=== PATIENT | female | born 1940 | race Caucasian/White ===

== ENCOUNTER 2016-12-10 12:57 | Inpatient (IN) | payer BC, MEDICARE ==
[2016-12-10 14:36] LABS: Add Diff/Slide Review? Slide Review Added; Comments Flag Yes; Hematocrit 32 % (35-47); Mean Corpuscular HGB Conc 32 g/dl (31-36); Mean Corpuscular Hemoglobin 27 pg (27-31); Mean Corpuscular Volume 85 fL (80-97); Mean Platelet Volume 9 um3 (7.4-10.4); Red Blood Count 3.73 10^6/ul (4.0-5.4); Red Cell Distribution Width 16 % (10.5-15); White Blood Count 26.1 10^3/ul (3.5-10.8)
[2016-12-10 14:44] LABS: Albumin 3.1 g/dL (3.2-5.2); BUN/Creatinine Ratio 22.7 (8-20); Calcium 9.1 mg/dL (8.6-10.3); EGFR African American 179.3 (>60); EGFR Non-African American 139.4 (>60); Globulin 3.6 g/dL (2-4); Potassium 3.6 mmol/L (3.5-5.0); Total Bilirubin 0.6 mg/dL (0.2-1.0); Total Protein 6.7 g/dL (6.4-8.9)
[2016-12-10 14:47] LABS: Troponin I 0.26 ng/mL (<0.04)
[2016-12-10] MEDS ORDERED: Ondansetron INJ* 2 MG/ML VIAL IV ONE (14:50)
[2016-12-10] MEDS ORDERED: Morphine INJ* 10 MG/ML 1 ML CARPUJECT IV ONE (14:50)
[2016-12-10] MEDS ORDERED: NS 0.9% 1000 ML* 1,000 ML IV ONE ×2 (14:50)
[2016-12-10] MEDS ORDERED: Piperac/Tazob 3.375 gm in NS* 3.375 GM/100 ML BAG IVPB ONE ×2 (14:51→17:00)
[2016-12-10] MEDS ORDERED: Aspirin TAB* 325 MG PO ONE (15:05)
[2016-12-10] MEDS ORDERED: Metoclopramide IV* 5 MG/ML 2 ML VIAL IV ONE (15:28)
[2016-12-10] MEDS ORDERED: Iohexol 350* (CONTRAST) 500 ML MDV IV ONE (16:30)
[2016-12-10] MEDS ORDERED: NS 0.9% 1000 ML* 1,000 ML IV SCH (16:45)
--- NOTE | 2016-12-10 17:08 | RAD ---
Indication: Right lower lobe pneumonia. Single frontal view of the chest performed at 1613 hours was reviewed. No prior study is available for comparison.. No mediastinal shift is noted. Heart is of normal size and configuration. Some atelectasis is noted in the right midlung field. Left lung field is clear.. IMPRESSION: LINEAR ATELECTASIS RIGHT MIDLUNG ZONE.
--- NOTE | 2016-12-10 17:26 | RAD ---
Indication: Elevated troponin, shortness of breath. Abdominal pain and right lower quadrant pain CTA of the chest, CT of the abdomen and pelvis was performed after oral and IV contrast administration. A total of Administered 99.9 ml of OMNIPAQUE 350 mgi/ml was administered according to hospital protocol. The pulmonary arterial tree is well opacified. No filling defects are noted to suggest pulmonary embolus. Aorta demonstrates no evidence of aortic dissection although atherosclerotic aorta is noted. No aneurysmal dilatation is noted. The trachea and major bronchi appear patent. There is some atelectasis in the anterior right upper lobe. No pleural fluid is noted. Atelectasis is noted in the left lower lobe as well. No alveolar consolidation is noted. There is no mediastinal or hilar adenopathy. The trachea and major bronchi appear patent. The heart demonstrates no evidence of pericardial effusion. The liver is normal in size. There are multiple lesions in the liver which are low density and are consistent with metastatic disease. The largest in the dome of the right lobe of liver measures up to 7.8 cm although innumerable other lesions are noted scattered throughout both lobes of the liver. The spleen demonstrates areas of hypoperfusion consistent with splenic infarcts. There is a large mass presumably from the pancreatic body measuring approximately 9.6 x 5.7 cm causing mass effect on the lesser curvature of the stomach. There may be extension into the stomach. There is likely encasement of the splenic artery causing hypoperfusion of the spleen. No adrenal masses are noted. The kidneys demonstrate symmetric nephrograms without focal lesions. No hydronephrosis is noted. Atherosclerotic aorta is noted. No dilated loops of bowel are noted. The colon is filled with stool. Atherosclerotic aorta without aneurysmal dilatation. No retroperitoneal adenopathy is noted. No pelvic masses are noted. Myomatous changes of the uterus are noted. The urinary bladder is unremarkable. The bony structures demonstrates degenerative disc disease at L2-L3. Endplate sclerosis is noted. Milder degenerative disc disease is noted at other levels. IMPRESSION: NO EVIDENCE OF PULMONARY EMBOLUS IS NOTED. LEFT BASILAR ATELECTASIS IS NOTED. RIGHT MIDLUNG ATELECTASIS IS NOTED. NO MEDIASTINAL ADENOPATHY IS NOTED. MULTIPLE HEPATIC MASSES CONSISTENT WITH METASTATIC DISEASE IS NOTED THE LARGEST IN THE DOME OF THE RIGHT LOBE OF LIVER MEASURING 7.8 CM ALTHOUGH INNUMERABLE BILOBAR METASTASES ARE PRESENT. THERE IS A LARGE MASS ARISING FROM THE PANCREATIC BODY MEASURING UP TO 9.6 X 5.7 CM WHICH IS HETEROGENEOUS. THERE IS LIKELY OBSTRUCTION AND INVASION OF THE SPLENIC ARTERY RESULTING IN HYPOPERFUSION OF THE SPLEEN. SPLENIC INFARCT IS LIKELY.
[2016-12-10] MEDS: Pantoprazole IV* 40 MG IV SCH (19:31)
[2016-12-10] MEDS: Enoxaparin(*) 40 MG/0.4 ML SYR SUBCUT SCH (19:31)
[2016-12-10] MEDS: KCL 10 MEQ/50 ML IVPREMIX* 10 MEQ/50 ML BAG IV SCH ×3 (19:49→23:51)
[2016-12-10] MEDS ORDERED: Piperac/Tazob 3.375 gm in NS* 3.375 GM/100 ML BAG IVPB SCH ×2 (20:00→21:40)
--- NOTE | 2016-12-10 20:30 | HP ---
HISTORY AND PHYSICAL: DATE OF ADMISSION: 12/10/16 TIME OF EVALUATION: 3:20 p.m. PRIMARY CARE PROVIDER: Jessenia Terrell MD, at [facility], phone number is [phone]. CHIEF COMPLAINT: Nausea and vomiting. HISTORY OF PRESENT ILLNESS: Mrs. Wise is a 76-year-old lady with a past medical history of hyperlipidemia, depression, hypertension, tobacco abuse who presented to the emergency room with complaints of nausea and vomiting. She states she was in her usual state of health until around Carmen time when she started to experience weakness, fatigue, night sweats to the point she would drench her sheets and she had 20-pound weight loss since then. She states that she was usually very active cleaning her home, working on her garden and since she has not been able to do it. She saw her PCP who referred her to [facility] where she was admitted from 11/22/16 to 11/24/16. Records are not available at this time but on her discharge instructions, it was stated that the patient was diagnosed with pancreatic cancer. Her granddaughter stated that the patient had a CT of the abdomen and pelvis that showed a pancreatic mass and possible liver metastasis. They say a biopsy was performed and they were told she had pancreatic cancer, but they do not have any records available at this time. The patient was discharged home and initially she feels she was doing well. She was able to eat in small and frequent meals, but she had no vomiting, she was too fatigued, but she was able to function at home and she has an appointment to see Dr. Krissy Yo, oncologist in [place]. The patient states that yesterday she felt worse than usual and she started to have recurrent vomiting with nausea and she was unable "to keep anything down," reason why she came to the emergency room today. She denies chest pain, dyspnea with exertion, orthopnea, paroxysmal nocturnal dyspnea, fever, chills, cough, diarrhea, or urinary complaints. PAST MEDICAL HISTORY: 1. Possible metastatic pancreatic CA as described above. 2. Hyperlipidemia. 3. Depression. 4. Hypertension. MEDICATIONS LIST: 1. Amlodipine/valsartan 5/160 mg one tablet p.o. daily. 2. Atorvastatin 40 mg p.o. daily. 3. Hydrocodone/acetaminophen 7.5/325 mg one tablet p.o. q.6 hours p.r.n. pain. 4. Multivitamins 1 tablet p.o. daily. 5. Omeprazole 20 mg p.o. daily. 6. Ondansetron 4 mg p.o. q.12 hours p.r.n. nausea. 7. Sertraline 200 mg p.o. daily. ALLERGIES: No known drug allergies. FAMILY HISTORY: Her mother of breast cancer. Father of heart disease. One son had a history of bipolar disorder and committed suicide. SOCIAL HISTORY: The patient is a smoker since age 18, one pack per day. Alcohol, she states that she drinks wine daily up to 4 to 5 glasses a day, but she states that since she has been unable to drink. She lives in [place] and healthcare proxy is her son, Jony Page, phone number [phone]. REVIEW OF SYSTEMS: A 14-point review of systems was performed and all the pertinent negative and positive findings are in the HPI. PHYSICAL EXAMINATION GENERAL: The patient is a pleasant elderly lady, lying in ER stretcher, in no acute distress. VITAL SIGNS: Temperature 97.7; heart rate is 90; respiratory rate is 12; oxygen saturation is 88% on room air, but it is up to 94% on 2 L nasal cannula; blood pressure is 153/63. HEENT: Pupils are equal and reactive to light. Moist mucous membranes. CHEST: Breath sounds present bilaterally with no added sounds. CVS: Normal S1, S2. Regular rate and rhythm. ABDOMEN: Soft with diffuse mild tenderness especially in the epigastric area. No guarding. No rebound. Bowel sounds are present. EXTREMITIES: No edema. No calf tenderness. NEURO: She is alert, awake, and oriented x3. Able to move all 4 extremities. LABORATORY AND IMAGING DATA: The patient had a CBC that showed WBC of 26.1, hemoglobin of 10, hematocrit of 32, platelets of 235 with 85% neutrophils. Chemistry showed a sodium of 136, potassium of 3.6, chloride of 99, bicarb of 25 , anion gap of 12, BUN of 10, creatinine of 0.4, glucose of 133. Lactic acid of 1, calcium of 9.1, total bilirubin of 0.6. AST of 37, ALT of 23, alk phos of 241. Troponin is 0.26. Albumin 3.1, lipase is 10. EKG done on 12/10/16 at 1:04 p.m. shows sinus rhythm at 97 beats per minute with minimal ST depression in V1 and V3, T-wave inversion in V2. There is no prior EKG to compare. ASSESSMENT AND PLAN: Mrs. Wise is a 76-year-old lady with a past medical history of hyperlipidemia, depression, hypertension that since Carmen has had progressive decline in her condition with weakness, fatigue, night sweats, 20-pound weight loss and that has been recently diagnosed with possible metastatic pancreatic cancer who presents to our emergency room with severe fatigue and recurrent nausea and vomiting. 1. Systemic inflammatory response syndrome. The patient meets systemic inflammatory response syndrome criteria with tachycardia and leukocytosis. It is not clear if she has an infectious insult at this time or if this just represents an inflammatory response to her malignancy. The patient will receive IV hydration. She is going to be cohn cultured and she is going to be starting empirically on Zosyn in case she has a GI source of infection. 2. Pancreatic cancer. We are awaiting records from [place]. She is going to have a CT of the abdomen and pelvis here to further delineate her disease and after I receive the records, I am going to request an Oncology consultation. 3. Elevation of troponin with EKG changes. The patient is a smoker, has hyperlipidemia and she is certainly at risk for coronary artery disease, but she is very clear that she does not have chest pain , shortness of breath, palpitations, or any other symptoms. These EKG changes revealed elevated troponins could represent acute coronary syndrome, could be a sign of increased demand in the setting of metastatic cancer and another possibility of the pulmonary embolism since she has a borderline low oxygen saturation and has a malignancy. At this point, she is going to be admitted to telemetry floor. We are going to check serial troponins. She will be started on aspirin. We are going to check an echocardiogram and a CTA of the chest to rule out pulmonary embolism. 4. Hypoxemic respiratory failure. The patient has a longstanding history of tobacco abuse, so this borderline low oxygen may be a chronic finding for her as she is not complaining of shortness of breath despite the lower number. She will have a CT of the chest and we will be able to analyze the parenchyma better. 5. Anemia. I suspect this is likely anemia of chronic disease in the setting of malignancy. We will check anemia workup. 6. Code status was discussed with the patient. She initially stated she wanted to be a do not resuscitate but at her family urging, she states that she is going to talk to her family and think more about it, but at this point she is a full code. 7. DVT prophylaxis. The patient has a score of 5 on the DVT Prophylaxis Risk Assessment Guide and she will be started on subcutaneous heparin. TIME SPENT: Approximately 80 minutes were spent with the patient and family interview, medical records review, physical examination to complete this admission and more than half of this time was spent [id number] with the patient in coordination of care. CC: Jessenia Terrell MD, [facility], phone number [phone] * [id number]/[facility] #: [id number] MTDD
--- NOTE | 2016-12-10 20:46 | ED ---
Pb Yo Billy, scribed for Aurelio Gallardo MD on 12/10/16 at 1442 . Complex/Multi-Sys Presentation - HPI Summary HPI Summary: Patient is a 76 year-old female coming to [facility] presenting with a complaint of intermittent right lower ribcage pain and associated nausea and vomiting. She states that she believes that she had lost 20 pounds in 2 weeks, prompting her to see her PCP. She was then sent to the [place] ER, where masses in the liver and pancreas were visualized on CT. She had a biopsy done, and she is concerned about having "hit a nerve" during the procedure, as the region is still painful 2 weeks after the biopsy. She states that the liver biopsy was positive for cancer. She has a follow up appointment with Dr. Yo (oncology) in 4 days. At this time in the ED, the patient denies any fever, diarrhea. She reports regular , normal, daily BM's. She does, however, report night sweats. - History Of Current Complaint Chief Complaint: EDAbdPain Time Seen by Provider: 12/10/16 14:18 Hx Obtained From: Patient Onset/Duration: Gradual Onset, Lasting Weeks, Still Present Timing: Intermittent, Lasting: Severity Currently: Moderate Severity Initially: Moderate Location: Pain At: - right lower ribcage Aggravating Factor(s): nothing Alleviating Factor(s): nothing Associated Signs And Symptoms: Positive: Nausea, Vomiting, Diaphoresis - night sweats. Negative: Diarrhea, Fever - Allergies/Home Medications Allergies/Adverse Reactions: Allergies Allergy/AdvReac Type Severity Reaction Status Date / Time No Known Drug Allergy Allergy no reaction Verified 12/10/16 15:29 Home Medications: Home Medications Amlodipine Besylate-Valsartan [Amlodipine Besylate/Valsa 5-160 mg-] 1 tab PO DAILY 12/10/16 [History Confirmed 12/10/16] Atorvastatin* [Lipitor*] 40 mg PO DAILY 12/10/16 [History Confirmed 12/10/16] Hydrocodone-Acetaminophen [Lorcet Plus 7.5-325 mg] 1 tab PO Q6H PRN 12/10/16 [ History Confirmed 12/10/16] Multivitamins/Minerals TAB* [Thera M Plus TAB*] 1 tab PO DAILY 12/10/16 [ History Confirmed 12/10/16] Omeprazole CAP* [Prilosec CAP* 20 MG] 20 mg PO DAILY 12/10/16 [History Confirmed 12/10/16] Ondansetron ODT TAB* [Zofran Odt TAB*] 4 mg PO Q12H PRN 12/10/16 [History Confirmed 12/10/16] Sertraline* [Zoloft*] 200 mg PO DAILY 12/10/16 [History Confirmed 12/10/16] PMH/Surg Hx/FS Hx/Imm Hx Endocrine/Hematology History: Denies: Hx Diabetes Cardiovascular History: Denies: Hx Hypertension Infectious Disease History: No Infectious Disease History: Denies: Traveled Outside the [place] in Last 30 Days - Family History Known Family History: Positive: Cardiac Disease - father, Other - breast cancer (mother) - Social History Alcohol Use: Daily Substance Use Type: Reports: None Smoking Status (MU): Current Every Day Smoker Review of Systems Positive: Skin Diaphoresis. Negative: Fever Positive: Vomiting, Nausea, Other - right lower ribcage pain. Negative: Diarrhea All Other Systems Reviewed And Are Negative: Yes Physical Exam Triage Information Reviewed: Yes Vital Signs On Initial Exam: Initial Vitals Temp Pulse Resp BP Pulse Ox 97.7 F 90 12 153/63 88 12/10/16 13:29 12/10/16 13:29 12/10/16 13:29 12/10/16 13:29 12/10/16 13:29 Vital Signs Reviewed: Yes Appearance: Positive: Well-Appearing, No Pain Distress Skin: Positive: Warm, Skin Color Reflects Adequate Perfusion, Dry Eyes: Positive: QUINCY ENT: Positive: Other - Dry mucous membranes. Neck: Positive: Supple, Nontender, No Lymphadenopathy Respiratory/Lung Sounds: Positive: Rales - Right lower lobe., Rhonchi - Right lower lobe. Cardiovascular: Positive: RRR - 99 bpm., Other - No gallops., S1, S2. Negative : Murmur, Rub Abdomen Description: Positive: Soft, Other: - RLQ tenderness.. Negative: CVA Tenderness (R), CVA Tenderness (L), Distended Bowel Sounds: Positive: Present Musculoskeletal: Positive: Strength/ROM Intact, Other - Calves are soft and nontender.. Negative: Edema Left, Edema Right Neurological: Positive: Sensory/Motor Intact, Alert, Oriented to Person Place, Time Psychiatric: Positive: Affect/Mood Appropriate - Logical and coherent. AVPU Assessment: Alert Diagnostics - Vital Signs Vital Signs Temp Pulse Resp BP Pulse Ox 12/10/16 13:29 97.7 F 90 12 153/63 88 - Laboratory Lab Results: Lab Results 12/10/16 Range/Units 13:48 WBC 26.1 H (3.5-10.8) 10^3/ul RBC 3.73 L (4.0-5.4) 10^6/ul Hgb 10.0 L (12.0-16.0) g/dl Hct 32 L (35-47) % MCV 85 (80-97) fL MCH 27 (27-31) pg MCHC 32 (31-36) g/dl RDW 16 H (10.5-15) % Plt Count 235 (150-450) 10^3/ul MPV 9 (7.4-10.4) um3 Neut % (Auto) 85.3 H (38-83) % Lymph % (Auto) 4.6 L (25-47) % Menard % (Auto) 8.9 (1-9) % Eos % (Auto) 1.0 (0-6) % Baso % (Auto) 0.2 (0-2) % Absolute Neuts (auto) 22.2 H (1.5-7.7) 10^3/ul Absolute Lymphs (auto) 1.2 (1.0-4.8) 10^3/ul Absolute Monos (auto) 2.3 H (0-0.8) 10^3/ul Absolute Eos (auto) 0.2 (0-0.6) 10^3/ul Absolute Basos (auto) 0.1 (0-0.2) 10^3/ul Absolute Nucleated RBC 0.02 10^3/ul Nucleated RBC % 0.1 Result Diagrams: 12/10/16 13:48 12/10/16 13:48 Lab Statement: Any lab studies that have been ordered have been reviewed, and results considered in the medical decision making process. - Radiology CXR Radiology Interpretation Completed By: Radiologist - LINEAR ATELECTASIS RIGHT MIDLUNG ZONE. - CT CTA c/a/p CT Interpretation Completed By: Radiologist - NO EVIDENCE OF PULMONARY EMBOLUS IS NOTED. LEFT BASILAR ATELECTASIS IS NOTED. RIGHT MIDLUNG ATELECTASIS IS NOTED. NO MEDIASTINAL ADENOPATHY IS NOTED. MULTIPLE HEPATIC MASSES CONSISTENT WITH METASTATIC DISEASE IS NOTED THE LARGEST IN THE DOME OF THE RIGHT LOBE OF LIVER MEASURING 7.8 CM ALTHOUGH INNUMERABLE BILOBAR METASTASES ARE PRESENT. THERE IS A LARGE MASS ARISING FROM THE PANCREATIC BODY MEASURING UP TO 9.6 X 5.7 CM WHICH IS HETEROGENEOUS. THERE IS LIKELY OBSTRUCTION AND INVASION OF THE SPLENIC ARTERY RESULTING IN HYPOPERFUSION OF THE SPLEEN. SPLENIC INFARCT IS LIKELY. - EKG 1304 EKG Interpretation: NSR 97 bpm, TWI in II, ST depression in V3. Complex Multi-Symp Course/Dx - Diagnoses Differential Diagnoses/HQI/PQRI: Cardiac Ischemia, Sepsis Provider Diagnoses: NSTEMI (non-ST elevated myocardial infarction), Pancreatic mass - Physician Notifications Discussed Care Of Patient With: Dr. Dyer (hospitalist) @ [id number]: accepts admission. - Critical Care Time Critical Care Time: 30-74 min - NSTEMI, possible sepsis. Discharge - Discharge Plan Condition: Stable Disposition: ADMITTED TO [facility] The documentation as recorded by the Pb grant Billy accurately reflects the service I personally performed and the decisions made by , Aurelio Gallardo MD.
[2016-12-10] MEDS: Acetaminophen TAB* 325 MG PO PRN (21:56)
[2016-12-10] MEDS: Morphine INJ* 2 MG/ML 1 ML CARPUJECT IV PRN (23:55)
[2016-12-11 05:24] LABS: Hematocrit 27 % (35-47); Hemoglobin 8.3 g/dl (12.0-16.0); Mean Corpuscular HGB Conc 31 g/dl (31-36); Mean Corpuscular Hemoglobin 27 pg (27-31); Mean Corpuscular Volume 86 fL (80-97); Mean Platelet Volume 8 um3 (7.4-10.4); Red Blood Count 3.08 10^6/ul (4.0-5.4); Red Cell Distribution Width 16 % (10.5-15)
[2016-12-11 05:29] LABS: Add Diff/Slide Review? Slide Review Added; Comments Flag Yes
[2016-12-11 05:37] LABS: ALT 18 U/L (7-52); AST 28 U/L (13-39); Albumin 2.6 g/dL (3.2-5.2); Alkaline Phosphatase 189 U/L (34-104); Anion Gap 7 mmol/L (2-11); Blood Urea Nitrogen 9 mg/dL (6-24); CO2 Carbon Dioxide 25 mmol/L (22-32); Calcium 8.1 mg/dL (8.6-10.3); Chloride 104 mmol/L (101-111); EGFR African American 194.5 (>60); EGFR Non-African American 151.2 (>60); Glucose 104 mg/dL (70-100); Potassium 3.7 mmol/L (3.5-5.0); Sodium 136 mmol/L (133-145); Total Protein 5.6 g/dL (6.4-8.9)
[2016-12-11 05:43] LABS: Troponin I 0.55 ng/mL (<0.04)
[2016-12-11 05:48] LABS: Iron 22 ug/dL (50-212); Total Iron Binding Capacity 151 mcg/dL (250-450); Transferrin 108 mg/dL (203-362)
[2016-12-11 06:12] LABS: Folate 13.86 ng/mL (>3.99)
[2016-12-11 06:13] LABS: Vitamin B12 781 pg/mL (180-914)
[2016-12-11 07:04] LABS: Ferritin > 1500.0 ng/mL (11-307)
[2016-12-11 07:47] LABS: Urine Bacteria Absent (Absent); Urine Bilirubin Negative (Negative); Urine Glucose Negative (Negative); Urine Nitrite Negative (Negative)
[2016-12-11] MEDS: Piperac/Tazob 3.375 gm in NS* 3.375 GM/100 ML BAG IVPB SCH ×3 (07:53→23:03)
[2016-12-11] MEDS: Morphine INJ* 2 MG/ML 1 ML CARPUJECT IV PRN ×2 (08:27→12:44)
[2016-12-11] MEDS: Sertraline* 100 MG TAB PO SCH (08:29)
[2016-12-11] MEDS: Pantoprazole IV* 40 MG IV SCH (08:30)
[2016-12-11] MEDS: amLODIPine TAB* 5 MG PO SCH (08:30)
[2016-12-11] MEDS: Multivitamins/Minerals TAB PO SCH (08:30)
[2016-12-11] MEDS: Aspirin EC Low Dose* 81 MG TAB.EC PO SCH (08:30)
[2016-12-11] MEDS ORDERED: Influenza VAC *QUAD* 2016-17* 0.5 ML SYRINGE IM ONE (09:00)
[2016-12-11] MEDS ORDERED: Pneumococcal *Vac Polyvalent 0.5 ML VIAL IM ONE (09:00)
--- NOTE | 2016-12-11 10:13 | PN ---
Subjective Date of Service: 12/11/16 Interval History: HOSPITALIST PROGRESS NOTE Patient seen and examined at bedside. She feels better this AM, less nausea, no vomiting, but still feels very fatigued. Family History: Unchanged from Admission Social History: Unchanged from Admission Past Medical History: Unchanged from Admission Objective Active Medications: Acetaminophen (Tylenol Tab*) 650 mg PO Q6H PRN PRN Reason: pain/fever Last Admin: 12/10/16 21:56 Dose: 650 mg Amlodipine Besylate (Norvasc Tab*) 5 mg PO DAILY [facility] Last Admin: 12/11/16 08:30 Dose: 5 mg Aspirin (Aspirin Ec Low Dose*) 81 mg PO DAILY [facility] Last Admin: 12/11/16 08:30 Dose: 81 mg Enoxaparin Sodium (Lovenox(*)) 40 mg SUBCUT Q24H [facility] Last Admin: 12/10/16 19:31 Dose: 40 mg Piperacillin Sod/Tazobactam Sod (Zosyn 3.375 Gm In Ns Premix*) 3.375 gm in 100 mls @ 25 mls/hr IVPB 0000,0800,1600 [facility] Last Admin: 12/11/16 07:53 Dose: 25 mls/hr Sodium Chloride (Ns 0.9% 1000 Ml*) 1,000 mls @ 75 mls/hr IV PER RATE [facility] Morphine Sulfate (Morphine Inj (Syringe)*) 2 mg IV Q4H PRN PRN Reason: PAIN Last Admin: 12/11/16 08:27 Dose: 2 mg Multivitamins/Minerals (Theragran/Minerals Tab*) 1 tab PO DAILY [facility] Last Admin: 12/11/16 08:30 Dose: 1 tab Ondansetron HCl (Zofran Inj*) 4 mg IV Q6H PRN PRN Reason: NAUSEA Pantoprazole Sodium (Protonix Iv*) 40 mg IV DAILY [facility] Last Admin: 12/11/16 08:30 Dose: 40 mg Sertraline HCl (Zoloft*) 200 mg PO DAILY [facility] Last Admin: 12/11/16 08:29 Dose: 200 mg Vital Signs 12/11/16 12/11/16 12/11/16 00:55 04:33 07:22 Temperature 98.8 F 99.3 F Pulse Rate 91 96 Respiratory 16 16 16 Rate Blood Pressure 116/60 146/66 (mmHg) O2 Sat by Pulse 92 91 Oximetry Oxygen Devices in Use Now: Nasal Cannula Appearance: Pleasant elderly lady lying in bed in NAD. Eyes: No Scleral Icterus Ears/Nose/Mouth/Throat: Mucous Membranes Moist Neck: Trachea Midline Respiratory: Symmetrical Chest Expansion and Respiratory Effort, Clear to Auscultation - but sounds are decreased Cardiovascular: RRR - Normal S1 and S2 Abdominal: - - Soft, mild epigastric tenderness, NG, NR, BS+ Extremities: No Edema Neurological: Alert and Oriented x 3, NL Muscle Strength and Tone Lines/Tubes/Other Access: Clean, Dry and Intact Peripheral IV Nutrition: Taking PO's Result Diagrams: 12/11/16 05:05 12/11/16 05:05 Assess/Plan/Problems-Billing Assessment: Mrs. Wise is a 76yo F with PMH of HLD, HTN, depression, tobacco abuse, recent diagnosis of metastatic pancreatic adenocarcinoma, who presents with c/o N/V and fatigue. - Patient Problems (1) SIRS (systemic inflammatory response syndrome) Comment: - Patient met SIRS criteria with tachycardia and leukocytosis. - No clear source of infection, this could be all secondary to her metastatic CA. - Continue Zosyn empirically, but will d/c it if cultures do not show growth in 48h. (2) Metastatic adenocarcinoma to pancreas Comment: - Records from [place] reviewed - sent by PCP to [place] after US showed possible pancreatic mass. CT showed 8.7x7.7x6.7cm lobulated mass arising from the pancreatic body and tail with probable central necrosis. The mass is exophytic and is displacing the stomach superiorly. Liver showed a 7x5.3 cm right lobe mass and at least 8 more small hypodensities in both lobes. Liver mass was biopsied and pathology showed moderately to poorly differentiated adenocarcinoma (but CA19-9 was negative). - Oncology consultation requested. (3) Elevated troponin Comment: - Patient has no complaints of chest pain or dyspnea, but had elevation of troponin up to 0.64 and dynamic septal EKG changes, in the setting of multiple risk factors for CAD including tobacco abuse, family history, age, HTN. - Cardiology input appreciated - recommended pharmacological stress test for risk stratification, but pt declines it. - Will continue medical management with ASA, Metoprolol and statin. - Echo showed normal EF and normal wall motion. (4) Acute on chronic respiratory failure with hypoxemia Comment: - Suspect patient has chronic hypoxemia associated with her tobacco abuse and undiagnosed COPD. - CTA chest was negative for PE and showed atelectasis. - Incentive spirometry and supplemental O2. (5) Anemia of chronic disease Comment: - Ferritin >1500. - Associated with her malignancy. (6) DVT prophylaxis Comment: - Lovenox. (7) Full code status Status and Disposition: Inpatient. Patient and family (son and granddaughter) updated at bedside. I gave them a printed copy of CT report.
[2016-12-11] MEDS: NS 0.9% 1000 ML* 1,000 ML IV SCH ×2 (10:27→23:03)
--- NOTE | 2016-12-11 12:13 | ECHO ---
Patient: NORMA TORRE Rec#: [id number] : 1940 Date: 12/11/2016 Age: 76y Height: 162.6 cm / 64.0 in Weight: 64.4 kg / 141.9 lbs Sex: F BSA: 1.7 Room#: 440 Admit Date#: 12/10/2016 Type: Inpatient Referring: Mireya Mccormack MD Reading: Marquis Mccrary MD [employer]ating Machine Operator: Stacia Reynolds RN RDCS Transthoracic Echocardiogram Indication: NSTEMI BP: 120/49 HR: 97 Rhythm: NSR Findings History: Newly diagnosed metastatic pancreatic cancer, HTN, HLD, smoker Technical Comments: The study is technically limited due to the patient's smoking history. Completed at 0955. Left Ventricle: The left ventricular chamber size is decreased. Mild to moderate concentric left ventricular hypertrophy is observed. Global left ventricular wall motion and contractility are within normal limits. There is normal left ventricular systolic function. The estimated ejection fraction is 60-65%. There is an E to A reversal in the mitral valve flow pattern suggestive of diastolic dysfunction. Left Atrium: The left atrial chamber size is normal. Right Ventricle: The right ventricle wall thickness is mildly increased. The right ventricular cavity size is normal. The right ventricular global systolic function is normal. Right Atrium: The right atrial cavity size is normal. There is no evidence of patent foramen ovale shunting. on color flow interrogation. There is evidence of an atrial septal aneurysm. Aortic Valve: The aortic valve is trileaflet. The aortic valve leaflets are mildly thickened. There is no evidence of aortic regurgitation. There is no evidence of aortic stenosis. Mitral Valve: There is mitral annular calcification. The mitral valve leaflets are mildly thickened. There is a trace of mitral regurgitation. Tricuspid Valve: The tricuspid valve leaflets are normal. There is mild to moderate tricuspid regurgitation. There is evidence of moderate to severe pulmonary hypertension. Pulmonic Valve: The pulmonic valve appears normal. There is a trace pulmonic regurgitation. There is no pulmonic stenosis. Pericardium: There is no significant pericardial effusion. A pericardial fat pad is visualized. Aorta: There is no dilatation of the ascending aorta. There is no dilatation of the aortic arch. There is no dilation of the aortic root. Pulmonary Artery: The main pulmonary artery is not well visualized. Venous: The inferior vena cava is dilated. There is less than 50% respiratory change in the inferior vena cava dimension. Conclusions There is normal left ventricular systolic function. The estimated ejection fraction is 60-65%. Global left ventricular wall motion and contractility are within normal limits. The left ventricular chamber size is decreased. Mild to moderate concentric left ventricular hypertrophy is observed. There is an E to A reversal in the mitral valve flow pattern suggestive of diastolic dysfunction. The right ventricle wall thickness is mildly increased. There is mild to moderate tricuspid regurgitation. There is evidence of moderate to severe pulmonary hypertension. There is no prior echocardiogram available to compare with at this time. Measurements Name Value Normal Range RVDdMajor (2D) 3.2 cm (2.2 - 4.4) RVAW (2D) 0.9 cm (0.2 - 0.5) RAd ISD 4CH 4.3 cm (3.4 - 4.9) RA (A4C)W 3.3 cm (2.9 - 4.6) IVSd (2D) 1.4 cm (0.6 - 1) LVPWd (2D) 1.1 cm (0.6 - 1) LVIDd (2D) 3.3 cm (3.6 - 5.4) LVIDs (2D) 2.1 cm - LV FS (2D) 35 % (25 - 45) Aortic Annulus 2 cm (1.4 - 2.6) Ao root diameter (2D) 2.7 cm (2.1 - 3.5) Ascending Ao 3.1 cm (2.1 - 3.4) Aortic arch 2.3 cm (1.8 - 3.4) LA dimension (AP) 2D 3.2 cm (2.3 - 3.8) LAd ISD 4CH 4 cm (2.9 - 5.3) LA ISD 4CH W 3.3 cm (2.5 - 4.5) Name Value Normal Range LA ESV SP 4CH (A/L) 23 ml - LA ESV SP 2CH (A/L) 36 ml - LA ESV BP (A/L) 32 ml - LA ESV BP (A/L) index 19 ml/m2 - LA ESV SP 4CH (MOD) 22 ml - LA ESV SP 2CH (MOD) 34 ml - Name Value Normal Range MV E-wave Vmax 0.92 m/sec - MV deceleration time 226 msec - MV A-wave Vmax 1.1 m/sec - MV E:A ratio 0.8 ratio - LV septal e' Vmax 0.09 m/sec - LV lateral e' Vmax 0.1 m/sec - LV E:e' septal ratio 10.2 ratio - LV E:e' lateral ratio 9.2 ratio - Name Value Normal Range AV Vmax 1.8 m/sec - LVOT Vmax 1.5 m/sec - ANA Vmax 0.47 m/sec - Name Value Normal Range TR Vmax 3.6 m/sec - TR peak gradient 52 mmHg - RAP 15 mmHg - RVSP 67 mmHg - IVC diameter 2.4 cm - Name Value Normal Range PV Vmax 0.94 m/sec -
[2016-12-11] MEDS: Metoprolol Tartrate TAB* 25 MG PO SCH ×2 (13:29→21:25)
[2016-12-11] MEDS: Morphine INJ* 4 MG/ML 1 ML CARPUJECT IV PRN ×2 (15:37→21:26)
[2016-12-11] MEDS ORDERED: Atorvastatin* 40 MG TAB PO SCH (17:00)
[2016-12-11] MEDS: Enoxaparin(*) 40 MG/0.4 ML SYR SUBCUT SCH (17:06)
--- NOTE | 2016-12-11 17:18 | CONS ---
CC: Dr. Terrell CARDIOLOGY CONSULTATION: DATE OF CONSULT: 12/11/16 REFERRAL PHYSICIAN: Dr. Mireya Castillo. HISTORY OF PRESENT ILLNESS: The patient is accompanied by her son and granddaughter with her granddaughter's name being Velia Page. The patient states that between and 2015, she began to feel poorly with nausea, vomiting, and could not eat. She was admitted earlier this month at [facility] where she was diagnosed with metastatic pancreatic cancer. The patient was discharged but again had severe nausea and vomiting, and was admitted to our hospital last evening. She denies chest pain , shortness of breath, or fainting. Here, troponin has been elevated on admission at 0.39 and has peaked at 0.64. There were also some dynamic septal ST-T wave changes noted. PAST CARDIAC HISTORY: None. PAST MEDICAL HISTORY: Significant for metastatic pancreatic cancer including to the liver diagnosed within the past month, hyperlipidemia, depression, hypertension. OUTPATIENT MEDICATIONS: 1. Amlodipine and valsartan 5/160 one tablet once a day. 2. Atorvastatin 40 mg once a day. 3. Hydrocodone/acetaminophen 7.5/325 mg 1 tablet p.o. q.6 hours p.r.n. pain. 4. Multivitamin 1 tablet once a day. 5. Omeprazole 20 mg once a day. 6. Ondansetron 4 mg p.o. q.12 hours p.r.n. nausea. 7. Sertraline 200 mg p.o. daily. ALLERGIES TO MEDICATIONS: None. She denies shrimp, seafood, or dye allergy. FAMILY HISTORY: Her father of heart problems at age of 62. Her mother of breast cancer at the age of 72. No family history of diabetes or stroke. SOCIAL HISTORY: The patient smokes one-half pack of cigarettes per day and has done so for 60 years. She drinks alcohol, 2 to 3 glasses of alcohol per day and occasionally more. She does not use illicit drugs. She has been for 6 years and lives alone. She is a high school graduate, who attended one- and-a-half years of college. 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 She does not perform regular exercise but tries to garden in the summer time. REVIEW OF SYSTEMS: She denies a personal history of stroke, cancer, vomiting blood, coughing up blood, bright red blood per rectum, bleeding stomach ulcers, renal calculi, cholelithiasis, asthma, emphysema, pneumonia, tuberculosis, sleep apnea, home oxygen use, diabetes. She has a history of hypertension. She denies prior MT, congestive heart failure, cardiac surgery, cardiac murmurs , palpitations. She has a history of anxiety and depression for which she uses sertraline. She denies lupus, psoriasis, seizures, Parkinson's disease, myasthenia gravis, thyroid disorders, liver disorders, kidney disorders, pulmonary emboli, deep venous thrombosis, peripheral arterial disease. She denies peripheral edema. She occasionally has a heartburn. All other review of systems are negative except as described above. PHYSICAL EXAM: Height 5 feet 4 inches, weight 145 pounds. Temperature 98.4 degrees Fahrenheit, pulse is 93, blood pressure 150/65, O2 saturation 91%, respiratory rate 16. On general exam, she is a chronically-ill appearing woman , in no acute distress, while lying flat. HEENT shows cranium is normocephalic and atraumatic. She has dry mucosal membranes. Neck veins reveal a JVP of 9 cm. No carotid bruits. Visible skin is warm and perfused. Affect appropriate. She appears oriented. No significant kyphoscoliosis on recumbent back exam. Lungs are clear to auscultation. No wheezing, no rales. Cardiac Exam: S1, S2, regular rate. No significant murmurs, rubs, or gallops. PMI is nondisplaced. Abdomen is soft, nondistended, and appears benign. There may be some mild ascites. Extremities without significant edema. Pulses appear intact. DIAGNOSTIC STUDIES/LAB DATA: She completed a transthoracic echocardiogram today which showed normal left ventricular ejection fraction of 60% to 65% with mild-to- moderate concentric left ventricular hypertrophy, mild right ventricular thickness, decreased left ventricular size, [id number] tricuspid regurgitation, moderate- to-severe pulmonary hypertension. She had a 12-lead EKG completed 12/10/16 at 1304, which shows sinus rhythm at 97 beats per minute with some ST-T wave changes in the septal leads. Repeat EKG completed 12/11/16 at 8:05 shows sinus rhythm at 92 beats per minute, shows improvement in prior septal ST-T wave changes. White blood cell count 24,000, hematocrit 27, platelet count 207. Sodium 136, potassium 3.7, chloride 104, bicarbonate 25, BUN 9, creatinine 0.41. Lactic acid was 2.3 on admission, now is 1. Troponin 0.39, followed by 0.34, followed by 0.64, followed by 0.55. IMPRESSION: Ms. Wise is a pleasant 76-year-old woman with unfortunate diagnosis recently of metastatic pancreatic cancer, admitted to [facility] for nausea and vomiting, and found to have elevated troponins and dynamic septal ST-T wave changes. She has no angina. She does have elevated troponin of 0.64 and normal left ventricular ejection fraction. She also has multiple cardiac risk factors including age, family history, cigarette smoking, hypertension, female gender, greater than 55. We reviewed this with the patient and I feel it would be reasonable to at least risk stratify her understanding her overall prognosis is limited with a cardiac chemical nuclear stress test. The patient pleasantly but firmly refuses that. RECOMMENDATIONS: 1. Agree with continuation of aspirin and would continue statin as outpatient, would recommend starting a beta anika. 2. If the patient changes her mind and is willing to do a cardiac chemical nuclear stress test, then would make arrangements for that and followup. If she has a low risk stress test , then continued medical therapy appears appropriate, especially given the absence of angina and known normal left ventricular ejection fraction. If, however, [id number] risk stress test findings, given her overall limited prognosis, further discussion would then need to be held including in conjunction with oncology. The patient at this time appears to decline all further therapy including abdominal surgery. The above was discussed in detail with the patient, her son and her granddaughter and they appeared to be in agreement with these recommendations. I have also discussed the case with Dr. Castillo of the hospitalist medicine service. Many thanks for this kind cardiovascular consultation opportunity. Please do not hesitate to contact me if you have questions or concerns regarding the patient's cardiovascular consultative care. [id number]/[facility] #: [id number] MTDD
[2016-12-12] MEDS: Morphine INJ* 4 MG/ML 1 ML CARPUJECT IV PRN ×4 (04:35→14:37)
[2016-12-12] MEDS: Piperac/Tazob 3.375 gm in NS* 3.375 GM/100 ML BAG IVPB SCH ×2 (07:32→15:56)
[2016-12-12] MEDS: Nitroglycerin TAB 0.4 MG* 0.4 MG TAB SL PRN ×3 (07:55→08:17)
[2016-12-12] MEDS: Multivitamins/Minerals TAB PO SCH (08:18)
[2016-12-12] MEDS: Sertraline* 100 MG TAB PO SCH (08:18)
[2016-12-12] MEDS: Aspirin EC Low Dose* 81 MG TAB.EC PO SCH (08:18)
[2016-12-12] MEDS: amLODIPine TAB* 5 MG PO SCH (08:18)
[2016-12-12] MEDS: Metoprolol Tartrate TAB* 25 MG PO SCH ×2 (08:18→21:52)
[2016-12-12] MEDS: Pantoprazole IV* 40 MG IV SCH (08:19)
[2016-12-12] MEDS: Clopidogrel TAB* 75 MG PO SCH (14:06)
[2016-12-12] MEDS: Atorvastatin* 80 MG TAB PO SCH (14:07)
[2016-12-12] MEDS: Cilostazol TAB* 100 MG PO SCH ×2 (14:08→21:52)
[2016-12-12] MEDS: NS 0.9% 1000 ML* 1,000 ML IV SCH (14:38)
[2016-12-12] MEDS ORDERED: Iohexol 350* (CONTRAST) 500 ML MDV IV SCH (14:44)
[2016-12-12] MEDS: Morphine INJ* 10 MG/ML 1 ML CARPUJECT IV PRN (16:03)
--- NOTE | 2016-12-12 16:03 | RAD ---
INDICATION: Left foot pain, cyanosis no palpable pulse. COMPARISON: Comparison is made with a prior CT of the chest, abdomen and pelvis from December 10, 2016. TECHNIQUE: A CT angiogram of the abdomen and pelvis and lower extremities was performed with intravenous contrast following intravenous injection of 125 ml of Omnipaque 350 nonionic contrast. Contiguous axial sections were obtained from the lung bases through the ankles. Images were reconstructed in the coronal and sagittal planes and in a 3-D volume rendered reformatted. FINDINGS: CT OF THE ABDOMEN AND PELVIS: Images through the lung bases demonstrate mild dependent bilateral lower lobe infiltrates and small bilateral pleural effusions. The liver is enlarged with multiple hypodense hepatic lesions measuring up to 8.1 x 6.3 cm in size consistent with metastatic disease as previously noted. No calcified gallstones are seen. There is a large mass arising from the tail and body of the pancreas measuring 10.0 x 6.7 cm in size. This invades the main portion of the splenic artery. The spleen is mildly enlarged with large areas of decreased density as noted on the prior exam consistent with a large splenic infarct. The kidneys and adrenal glands are normal in size. No hydronephrosis is seen. No significant focal renal abnormality is seen. The stomach is displaced anterior by the large pancreatic mass. The stomach, small and large bowel appear nondistended. There is no evidence for diverticulitis or colitis. No free to peritoneal air is seen. There is a small amount of free intraperitoneal fluid adjacent to the liver and in the pelvis. No significant focal osseous abnormality is seen. CT ANGIOGRAM OF THE ABDOMINAL AORTA: The abdominal aorta is normal in caliber. There is moderate calcific and soft plaque present. No hemodynamically significant stenosis is present. The celiac artery appears patent without evidence for hemodynamic significant stenosis. As noted above there is occlusion and invasion of the main portion of the splenic artery by the large pancreatic mass. The superior and inferior mesenteric arteries appear widely patent. CT ANGIOGRAM OF THE RIGHT LOWER EXTREMITY, RIGHT ILIAC VESSELS: There is mild to moderate calcific plaque within the common and external iliac arteries without evidence for hemodynamically significant stenosis. There is a filling defect with a small peripheral rind of contrast present within the right common femoral artery causing near complete occlusion of the vessel. The superficial femoral artery and popliteal arteries appear patent. There is occlusion of the mid posterior tibial artery the anterior tibial and peroneal arteries appear patent. The anterior tibial artery crosses the ankle. CT ANGIOGRAM LEFT LOWER EXTREMITY, LEFT ILIAC VESSELS: There is near complete occlusion of the distal common and proximal external iliac arteries with a small peripheral rind of contrast visualized. There is moderate calcific plaque present within the common and external iliac arteries and within the common femoral artery. The superficial femoral and popliteal arteries appear patent with mild to moderate atherosclerotic changes without hemodynamically significant stenosis. There is occlusion of the proximal to mid peroneal and posterior tibial arteries the anterior tibial artery is patent and crosses the ankle. The results of this exam were discussed with the referring clinician. IMPRESSION: 1. FILLING DEFECTS CAUSING NEAR COMPLETE OCCLUSION OF THE RIGHT COMMON FEMORAL AND LEFT DISTAL COMMON AND PROXIMAL EXTERNAL ILIAC ARTERIES WITHOUT SIGNIFICANT COLLATERAL FLOW LIKELY REPRESENTING EMBOLI. 2. OCCLUSION OF THE RIGHT POSTERIOR TIBIAL ARTERY AND LEFT POSTERIOR TIBIAL AND PERONEAL ARTERIES. 3. LARGE PANCREATIC MASS INVADING AND OCCLUDING THE MAJORITY OF THE MAIN PART OF THE LEFT SPLENIC ARTERY CAUSING A LARGE SPLENIC INFARCT. 3. MULTIPLE HEPATIC LESIONS CONSISTENT WITH METASTATIC DISEASE. 4. SMALL BILATERAL PLEURAL EFFUSIONS AND BILATERAL LOWER LOBE INFILTRATES. 5. SMALL AMOUNT OF ASCITES.
[2016-12-12 16:43] LABS: Comments Flag Yes; Hematocrit 24 % (35-47); Hemoglobin 7.6 g/dl (12.0-16.0); Mean Corpuscular HGB Conc 32 g/dl (31-36); Mean Corpuscular Hemoglobin 27 pg (27-31); Mean Corpuscular Volume 86 fL (80-97); Mean Platelet Volume 9 um3 (7.4-10.4); Red Blood Count 2.83 10^6/ul (4.0-5.4); Red Cell Distribution Width 16 % (10.5-15)
[2016-12-12] MEDS: Heparin DRIP 25,000 UNITS(*) 25,000 UNITS/500 ML BAG IVPB SCH (17:49)
[2016-12-12] MEDS: Heparin VIAL(*) 5000 UNITS/ML VIAL (FIVE THOUSAND) IV SCH (17:49)
[2016-12-12] MEDS ORDERED: fentaNYL PATCH 25 MCG/HR TRANSDERM SCH (18:00)
--- NOTE | 2016-12-12 18:27 | PN ---
Subjective Date of Service: 12/12/16 Interval History: HOSPITALIST PROGRESS NOTE Patient seen and examined at bedside. Called by RN earlier today as patient was complaining of severe left foot pain. She is tolerating full liquid diet, but doesn't have much of an appetite. Denies N/V. Family History: Unchanged from Admission Social History: Unchanged from Admission Past Medical History: Unchanged from Admission Objective Active Medications: Acetaminophen (Tylenol Tab*) 650 mg PO Q6H PRN PRN Reason: pain/fever Last Admin: 12/10/16 21:56 Dose: 650 mg Amlodipine Besylate (Norvasc Tab*) 5 mg PO DAILY [facility] Last Admin: 12/12/16 08:18 Dose: 5 mg Aspirin (Aspirin Ec Low Dose*) 81 mg PO DAILY [facility] Last Admin: 12/12/16 08:18 Dose: 81 mg Atorvastatin Calcium (Lipitor*) 80 mg PO DAILY [facility] Last Admin: 12/12/16 14:07 Dose: 80 mg Cilostazol (Pletal Tab*) 50 mg PO BID [facility] Last Admin: 12/12/16 14:08 Dose: 50 mg Clopidogrel Bisulfate (Plavix Tab*) 75 mg PO DAILY [facility] Last Admin: 12/12/16 14:06 Dose: 75 mg Diazepam (Valium Tab(*)) 5 mg PO ONCE ONE Stop: 12/13/16 11:01 Diphenhydramine HCl (Benadryl Po*) 50 mg PO ONCE ONE Stop: 12/13/16 11:01 Fentanyl (Duragesic Patch 25 Mcg/Hr*) 25 mcg TRANSDERM Q72H [facility] Heparin Sodium (Porcine) (Heparin Vial(*)) 0 units IV .PER PROTOCOL [facility] PRN Reason: Protocol Stop: 12/13/16 09:00 Last Admin: 12/12/16 17:49 Dose: 4,900 units Piperacillin Sod/Tazobactam Sod (Zosyn 3.375 Gm In Ns Premix*) 3.375 gm in 100 mls @ 25 mls/hr IVPB 0000,0800,1600 [facility] Last Admin: 12/12/16 15:56 Dose: 25 mls/hr Sodium Chloride (Ns 0.9% 1000 Ml*) 1,000 mls @ 75 mls/hr IV PER RATE [facility] Stop: 12/13/16 08:59 Last Admin: 12/12/16 14:38 Dose: 75 mls/hr Heparin Sodium/Dextrose (Heparin Drip 25,000 Units(*)) 25,000 units in 500 mls @ 0 mls/hr IVPB .PER RATE LARA; Per Protocol PRN Reason: Protocol Stop: 12/13/16 08:00 Last Admin: 12/12/16 17:49 Dose: 24 mls/hr Sodium Chloride (Ns 0.9% 1000 Ml*) 1,000 mls @ 100 mls/hr IV .PER RATE [facility] Iohexol (Omnipaque 350 (Contrast)-) 125 ml IV ONCE [facility] Stop: 12/14/16 23:59 Last Admin: 12/12/16 15:20 Dose: 125 ml Metoprolol Tartrate (Lopressor Tab*) 12.5 mg PO Q12HR [facility] Last Admin: 12/12/16 08:18 Dose: 12.5 mg Morphine Sulfate (Morphine Inj (Syringe)*) 6 mg IV Q2H PRN PRN Reason: PAIN Last Admin: 12/12/16 16:03 Dose: 6 mg Multivitamins/Minerals (Theragran/Minerals Tab*) 1 tab PO DAILY [facility] Last Admin: 12/12/16 08:18 Dose: 1 tab Ondansetron HCl (Zofran Inj*) 4 mg IV Q6H PRN PRN Reason: NAUSEA Pantoprazole Sodium (Protonix Iv*) 40 mg IV DAILY [facility] Last Admin: 12/12/16 08:19 Dose: 40 mg Pharmacy Profile Note (Fentanyl Patch Check Q Shift) 1 note N/A 0700,1900 [facility] Sertraline HCl (Zoloft*) 200 mg PO DAILY [facility] Last Admin: 12/12/16 08:18 Dose: 200 mg Vital Signs 12/12/16 12/12/16 15:52 16:03 Temperature 97.5 F Pulse Rate 87 Respiratory 18 17 Rate Blood Pressure 121/50 (mmHg) O2 Sat by Pulse 96 Oximetry Oxygen Devices in Use Now: Nasal Cannula Appearance: Pleasant elderly lady lying in bed in NAD. Eyes: No Scleral Icterus Ears/Nose/Mouth/Throat: Mucous Membranes Moist Neck: Trachea Midline Respiratory: Symmetrical Chest Expansion and Respiratory Effort, Clear to Auscultation Cardiovascular: RRR - Normal S1 and S2 Abdominal: - - Soft, epigastric tenderness, NG, NR, BS+ Extremities: - - Left foot is cold and cyanotic and I cannot find peripheral pulses. Right femoral pulse is present but diminished. Neurological: Alert and Oriented x 3, NL Muscle Strength and Tone Lines/Tubes/Other Access: Clean, Dry and Intact Peripheral IV Nutrition: Taking PO's Result Diagrams: 12/12/16 16:34 12/12/16 16:34 Assess/Plan/Problems-Billing Assessment: Mrs. Wise is a 76yo F with PMH of HLD, HTN, depression, tobacco abuse, recent diagnosis of metastatic pancreatic adenocarcinoma, who presents with c/o N/V and fatigue. - Patient Problems (1) Iliac artery embolism Comment: - Physical examination compatible with an acute ischemic left foot. - CTA aorta and run off showed left common and external iliac artery occlusion likely representing emboli. Other findings of chronic PVD also present. - Case d/w Dr. Alfaro - recommended Aspirin, Plavix, Cilostazol and heparin drip. Plan for angioplasty tomorrow. - Risk of bleeding explained to patient and son and they understand benefits surpasses the risk at this time. (2) SIRS (systemic inflammatory response syndrome) Comment: - Patient met SIRS criteria with tachycardia and leukocytosis. - No clear source of infection, this could be all secondary to her metastatic CA. - Continue Zosyn empirically, but will d/c it if cultures do not show growth in 48h. (3) Metastatic adenocarcinoma to pancreas Comment: - Records from [place] reviewed - sent by PCP to [place] after US showed possible pancreatic mass. CT showed 8.7x7.7x6.7cm lobulated mass arising from the pancreatic body and tail with probable central necrosis. The mass is exophytic and is displacing the stomach superiorly. Liver showed a 7x5.3 cm right lobe mass and at least 8 more small hypodensities in both lobes. Liver mass was biopsied and pathology showed moderately to poorly differentiated adenocarcinoma (but CA19-9 was negative). - Oncology consultation appreciated - patient elects Hospice care. (4) Elevated troponin Comment: - Patient has no complaints of chest pain or dyspnea, but had elevation of troponin up to 0.64 and dynamic septal EKG changes, in the setting of multiple risk factors for CAD including tobacco abuse, family history, age, HTN. - Cardiology input appreciated - recommended pharmacological stress test for risk stratification, but pt declines it. - Will continue medical management with ASA, Metoprolol and statin. - Echo showed normal EF and normal wall motion. (5) Acute on chronic respiratory failure with hypoxemia Comment: - Suspect patient has chronic hypoxemia associated with her tobacco abuse and undiagnosed COPD. - CTA chest was negative for PE and showed atelectasis. - Incentive spirometry and supplemental O2. (6) Anemia of chronic disease Comment: - Ferritin >1500. - Associated with her malignancy. (7) DVT prophylaxis Comment: - Heparin drip. (8) Full code status Status and Disposition: Inpatient. Patient and family (son) updated at bedside.
[2016-12-12] MEDS ORDERED: diPHENhydraMINE PO* 50 MG PO SCH (19:00)
[2016-12-12] MEDS ORDERED: Diazepam TAB(*) 5 MG PO SCH (19:00)
[2016-12-12] MEDS: fentaNYL Patch Check Q Shift 1 NOTE SCH (19:09)
--- NOTE | 2016-12-12 21:41 | CONS ---
INTERVENTIONAL CARDIOLOGY CONSULT: DATE OF CONSULT: 12/12/16 PRIMARY: Dr. Jessenia Terrell at [facility]. HISTORY OF PRESENT ILLNESS: A 76-year-old woman with metastatic pancreatic cancer with acute onset of left leg rest pain. CTA shows left iliac artery occlusion. Interventional Cardiology was consulted for evaluation regarding revascularization for rest pain. She is a good historian. She has had some left leg pain in the past although no clear history of claudication. She does have a history of hypertension and hyperlipidemia, has not had any previous vascular investigation. She was admitted because of nausea and vomiting attributed to her pancreatic cancer with metastasis. In the hospital, she suddenly developed severe rest pain in the left leg leading to a CTA. She has no history of aspirin intolerance, has not had any bleeding. She is aware of her pancreatic cancer and her dismal prognosis and has declined further cardiac testing for somewhat abnormal troponins and she has no interest in invasive aggressive cardiac procedures; however, with the severe unremitting left foot and leg pain with acute ischemia , she is interested in evaluation and revascularization for pain relief. PAST MEDICAL HISTORY: Metastatic pancreatic CA, hyperlipidemia, depression, hypertension. CURRENT MEDICATIONS: 1. Norvasc 5 mg daily. 2. Aspirin 81 daily. 3. Lipitor 80 daily. 4. Pletal 50 b.i.d. 5. Plavix 75 daily. 6. Heparin to be instituted. 7. Lopressor 12.5 q.12. 8. Morphine. 9. Protonix. 10. Antibiotics. ALLERGIES: None. FAMILY HISTORY: Negative for premature coronary disease. SOCIAL HISTORY: She is a smoker. PHYSICAL EXAM: She is complaining of left foot and left leg pain with numbness and weakness in the left leg. She is able to move her toes. Her femoral pulse on the right side is diminished, but palpable. The left femoral pulse is not palpable. I cannot feel popliteals on either side. She has no palpable left pedals. She does have a palpable right dorsalis pedis. Her left foot is pale, cyanotic. She has no wounds. Capillary refill is delayed. It is cool compared to the right. DIAGNOSTIC STUDIES/LAB DATA: Her hemoglobin is 7.6, hematocrit 24, creatinine 0.41. Her troponins were 0.34, 0.64, 0.55, 0.3. Her EKG shows only minimal amount of specific ST changes. Since her admission EKG, the right precordial repolarization changes have improved. CTA: I reviewed her CTA. Her left common iliac artery is totally occluded. Distally, she has a distal left posterior tibial artery occlusion with anterior tibial runoff to the foot. On the right side, she has right external iliac artery occlusion or high-grade stenosis with again distal right posterior tibial artery occlusion. IMPRESSION: 1. Critical limb ischemia: She has rest pain with fairly acute onset, left lower extremity with left common iliac/external iliac artery junction occlusion. She has fairly extensive atherosclerosis. She may have an embolic event occluding the vessel on top of a preexisting plaque or had nearly progression of her iliac disease in a hypercoagulable state. Regardless, she has rest pain with unremitting severe pain and is interested in the palliative procedure for pain relief. We discussed this. She will need antiplatelet therapy post procedure. I reviewed the procedure with her. The plan is retrograde left common femoral access with likely stenting. This will be planned for late tomorrow morning. In the interim, she will be heparinized. Her left foot is threatened, but viable. 2. Abnormal troponins: She has already been seen by Dr. Mccrary. The patient has no desire to have risk stratification with imaging or any cardiac procedures. I think it is quite appropriate given her primary diagnosis. CC: Dr. Jessenia Terrell [facility]; Dr. Alma Alfaro* [id number]/[facility] #: [id number] [facility]
--- NOTE | 2016-12-12 23:30 | CONS ---
CONSULTATION REPORT: DATE OF ADMISSION: 12/10/16 DATE OF CONSULT: 12/12/16 REASON FOR CONSULTATION: Pancreatic cancer. HISTORY OF PRESENT ILLNESS: This 76-year-old who has generally felt healthy, very few doctor visits and rarely in the hospital. At [facility], she developed difficulty eating and lost approximately 20 pounds over several weeks. She also developed an intermittent abdominal pain. She was seen by her primary care doctor associated with [facility] and she did a test and I am not sure what it was that showed a mass in the stomach. Subsequently, had a CT scan that showed a large mass in the head of the pancreas with compression of the stomach as well as multiple liver lesions. The largest liver lesion was 7.9 cm. She is admitted to [facility] from 11/22/16 to 11/24/16 and during that time, had a biopsy of a liver mass that showed adenocarcinoma consistent with a pancreatic primary. CA19-9 was negative. She was discharged home, but had continued difficulty eating, somewhat dehydrated, weaker, and then took ambulance to [facility]. She was set up to see an Oncologist in [place], but never had an office visit. In the hospital today, she developed acute pain in the left lower leg and this is now her dominant pain. Examined by Dr. Castillo and was found to have a cyanotic foot. Dr. Alfaro was consulted and she is going to go to rn labor delivery tomorrow for potential balloon angioplasty. She also had a mild elevation in troponins that has been persistent and seen by Dr. Mccrary and being treated with medical management. PAST MEDICAL HISTORY: 1. Depression. 2. Hypertension. 3. High cholesterol. PAST SURGICAL HISTORY: C-sections. No other surgery. MEDICATIONS: 1. Tylenol 650 q.6 hours p.r.n. 2. Norvasc 5 mg a day. 3. Aspirin 81 mg daily. 4. Lipitor 80 daily. 5. Cilostazol 50 mg b.i.d. 6. Plavix 75 mg a day. 7. Diltiazem 5 once. 8. Benadryl 50 once. 9. Fentanyl 25 mcg patch. 10. IV heparin. 11. Metoprolol 12.5 q.12 hours. 12. IV morphine p.r.n. 13. Zofran 4 mg q.6 hours p.r.n. 14. Protonix 40 mg IV daily. 15. Zosyn 3.375 IV q.6 hours. 16. Zoloft 200 mg daily. SOCIAL HISTORY: She has 2 children who were both with her in clinic today. She smoked cigarettes up until 3 weeks ago. She is a consumer of red wine. Took care of her mother and her who both of cancer with prolonged disease course. REVIEW OF SYSTEMS: As noted above. In addition, she is constipated, urinating fine. Notices some cognitive chain difficulty with the pain medicine. Otherwise, 14-point review of systems negative. PHYSICAL EXAM: Temperature 97.5, BP 121/50, pulse 87, respirations 18, and O2 sat 96%. HEENT: Slightly pale, mucosa moist, no lesion, and no Jaundice. No cervical or supraclavicular lymphadenopathy. Lungs are clear to auscultation. Heart is regular on my exam, S1, S2. Abdomen, she is nontender and obese. No hepatosplenomegaly and positive bowel sounds. Extremities, cold left foot that is white. Notable change from right foot. No edema. DIAGNOSTIC STUDIES/LAB DATA: CT scan is reviewed with large liver lesions, large pancreatic mass. Blood work was significant for anemia with a hemoglobin 7.6; white count 28,000 ; and platelet 191,000. ASSESSMENT AND PLAN: This is a 76-year-old female presented with metastatic pancreatic cancer. 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 We discussed that treatment would be more harm than good and would likely result in repeat hospitalizations. In best case landryley scenario, chemotherapy would extend life by a few months. She has seen other relatives suffer with cancer, does not want to pursue active treatment at this time. She is interested in the hospice and the family is going to call [facility] tomorrow. I did recommend that we engage the hospitalist service at the [facility] and they maybe able to facilitate transition to outpatient care at [facility]. I would titrate up the Fentanyl patch as tolerated. I agree with plans for angioplasty tomorrow, clearly for palliation of left foot pain. At this time, she can hold on the blood transfusion, but if her hemoglobin drops further, it maybe worth giving her packed red blood cells before discharge. Zofran is reasonable for nausea as is the IV fluids. As an outpatient, we would likely go to Compazine suppositories or dissolving Zofran. We will continue to follow while she is in the hospital. Dr. Wong is rounding tomorrow and will see if other issues arise, I [place] [id number]/[facility] #: [id number] [facility]
[2016-12-13] MEDS: Piperac/Tazob 3.375 gm in NS* 3.375 GM/100 ML BAG IVPB SCH ×3 (00:13→16:12)
[2016-12-13] MEDS: Ondansetron INJ* 2 MG/ML VIAL IV PRN (00:48)
[2016-12-13] MEDS: Acetaminophen TAB* 325 MG PO PRN (00:51)
[2016-12-13 04:26] LABS: Hematocrit 23 % (35-47); Hemoglobin 7.1 g/dl (12.0-16.0); Mean Corpuscular HGB Conc 31 g/dl (31-36); Mean Corpuscular Hemoglobin 26 pg (27-31); Mean Corpuscular Volume 85 fL (80-97); Mean Platelet Volume 9 um3 (7.4-10.4); Red Cell Distribution Width 16 % (10.5-15); White Blood Count 25.9 10^3/ul (3.5-10.8)
[2016-12-13 04:28] LABS: Add Diff/Slide Review? Slide Review Added; Comments Flag Yes
[2016-12-13] MEDS: Heparin DRIP 25,000 UNITS(*) 25,000 UNITS/500 ML BAG IVPB SCH (04:37)
[2016-12-13] MEDS: Heparin VIAL(*) 5000 UNITS/ML VIAL (FIVE THOUSAND) IV SCH (04:37)
[2016-12-13] MEDS: fentaNYL Patch Check Q Shift 1 NOTE SCH ×2 (07:26→21:15)
[2016-12-13] MEDS: NS 0.9% 1000 ML* 1,000 ML IV SCH (08:14)
[2016-12-13] MEDS: Multivitamins/Minerals TAB PO SCH (08:17)
[2016-12-13] MEDS: Pantoprazole IV* 40 MG IV SCH (08:17)
[2016-12-13] MEDS: Metoprolol Tartrate TAB* 25 MG PO SCH ×2 (08:20→21:07)
[2016-12-13] MEDS: Atorvastatin* 80 MG TAB PO SCH (08:20)
[2016-12-13] MEDS: Sertraline* 100 MG TAB PO SCH (08:20)
[2016-12-13] MEDS: amLODIPine TAB* 5 MG PO SCH (08:21)
[2016-12-13] MEDS: Cilostazol TAB* 100 MG PO SCH ×2 (08:21→21:05)
[2016-12-13] MEDS: Aspirin EC Low Dose* 81 MG TAB.EC PO SCH (08:21)
[2016-12-13] MEDS: Clopidogrel TAB* 75 MG PO SCH (08:21)
--- NOTE | 2016-12-13 09:52 | PN ---
Subjective Date of Service: 12/13/16 Interval History: HOSPITALIST PROGRESS NOTE Patient seen and examined at bedside. She states her left leg pain is better controlled and she got some sleep last night. Abdominal pain is less intense, tolerated full liquid diet. Family History: Unchanged from Admission Social History: Unchanged from Admission Past Medical History: Unchanged from Admission Objective Active Medications: Acetaminophen (Tylenol Tab*) 650 mg PO Q6H PRN PRN Reason: pain/fever Last Admin: 12/13/16 00:51 Dose: 650 mg Amlodipine Besylate (Norvasc Tab*) 5 mg PO DAILY [facility] Last Admin: 12/13/16 08:21 Dose: 5 mg Aspirin (Aspirin Ec Low Dose*) 81 mg PO DAILY [facility] Last Admin: 12/13/16 08:21 Dose: 81 mg Atorvastatin Calcium (Lipitor*) 80 mg PO DAILY [facility] Last Admin: 12/13/16 08:20 Dose: 80 mg Cilostazol (Pletal Tab*) 50 mg PO BID [facility] Last Admin: 12/13/16 08:21 Dose: 50 mg Clopidogrel Bisulfate (Plavix Tab*) 75 mg PO DAILY [facility] Last Admin: 12/13/16 08:21 Dose: 75 mg Diazepam (Valium Tab(*)) 5 mg PO ONCALL [facility] Stop: 12/13/16 12:00 Diphenhydramine HCl (Benadryl Po*) 50 mg PO ONCALL [facility] Stop: 12/13/16 12:00 Fentanyl (Duragesic Patch 25 Mcg/Hr*) 25 mcg TRANSDERM Q72H [facility] Last Admin: 12/12/16 18:25 Dose: 25 mcg Piperacillin Sod/Tazobactam Sod (Zosyn 3.375 Gm In Ns Premix*) 3.375 gm in 100 mls @ 25 mls/hr IVPB 0000,0800,1600 [facility] Last Admin: 12/13/16 08:14 Dose: 25 mls/hr Sodium Chloride (Ns 0.9% 1000 Ml*) 1,000 mls @ 100 mls/hr IV .PER RATE [facility] Last Admin: 12/13/16 08:14 Dose: 100 mls/hr Iohexol (Omnipaque 350 (Contrast)-) 125 ml IV ONCE [facility] Stop: 12/14/16 23:59 Last Admin: 12/12/16 15:20 Dose: 125 ml Metoprolol Tartrate (Lopressor Tab*) 12.5 mg PO Q12HR [facility] Last Admin: 12/13/16 08:20 Dose: 12.5 mg Morphine Sulfate (Morphine Inj (Syringe)*) 6 mg IV Q2H PRN PRN Reason: PAIN Last Admin: 12/12/16 16:03 Dose: 6 mg Multivitamins/Minerals (Theragran/Minerals Tab*) 1 tab PO DAILY [facility] Last Admin: 12/13/16 08:17 Dose: 1 tab Ondansetron HCl (Zofran Inj*) 4 mg IV Q6H PRN PRN Reason: NAUSEA Last Admin: 12/13/16 00:48 Dose: 4 mg Pantoprazole Sodium (Protonix Iv*) 40 mg IV DAILY [facility] Last Admin: 12/13/16 08:17 Dose: 40 mg Pharmacy Profile Note (Fentanyl Patch Check Q Shift) 1 note N/A 0700,1900 [facility] Last Admin: 12/13/16 07:26 Dose: 1 note Sertraline HCl (Zoloft*) 200 mg PO DAILY [facility] Last Admin: 12/13/16 08:20 Dose: 200 mg Vital Signs 12/13/16 12/13/16 07:11 08:00 Temperature 98.4 F Pulse Rate 95 Respiratory 16 18 Rate Blood Pressure 118/52 (mmHg) O2 Sat by Pulse 91 Oximetry Oxygen Devices in Use Now: Nasal Cannula Appearance: Pleasant elderly lady lying in bed in NAD. Eyes: No Scleral Icterus Ears/Nose/Mouth/Throat: Mucous Membranes Moist - pale Neck: Trachea Midline Respiratory: Symmetrical Chest Expansion and Respiratory Effort, Clear to Auscultation Cardiovascular: RRR - Normal S1 and S2 Abdominal: - - Soft, mild epigastric tenderness, ND, BS+ Extremities: - - Left leg was cool and cyanotic with no palpable pulse. Neurological: Alert and Oriented x 3, NL Muscle Strength and Tone Lines/Tubes/Other Access: Clean, Dry and Intact Peripheral IV Result Diagrams: 12/13/16 04:00 12/13/16 04:00 Assess/Plan/Problems-Billing Assessment: Mrs. Wise is a 76yo F with PMH of HLD, HTN, depression, tobacco abuse, recent diagnosis of metastatic pancreatic adenocarcinoma, who presents with c/o N/V and fatigue. - Patient Problems (1) Iliac artery embolism Comment: - Physical examination compatible with an acute ischemic left foot. - CTA aorta and run off showed left common and external iliac artery occlusion likely representing emboli. Other findings of chronic PVD also present. - Case d/w Dr. Alfaro - continue Aspirin, Plavix, Cilostazol and heparin drip. Plan for angioplasty today. - Risk of bleeding explained to patient and son and they understand benefits surpasses the risk at this time. (2) Anemia of chronic disease Comment: - More anemia today. Suspect possible blood loss on top of her anemia of chronic disease. - Will transfuse 2 PRBCs. (3) SIRS (systemic inflammatory response syndrome) Comment: - Patient met SIRS criteria with tachycardia and leukocytosis. - No clear source of infection, suspect it to be leukemoid reaction secondary to her metastatic CA. - Cultures showed no growth, will d/c Zosyn. (4) Metastatic adenocarcinoma to pancreas Comment: - Records from [place] reviewed - sent by PCP to [place] after US showed possible pancreatic mass. CT showed 8.7x7.7x6.7cm lobulated mass arising from the pancreatic body and tail with probable central necrosis. The mass is exophytic and is displacing the stomach superiorly. Liver showed a 7x5.3 cm right lobe mass and at least 8 more small hypodensities in both lobes. Liver mass was biopsied and pathology showed moderately to poorly differentiated adenocarcinoma (but CA19-9 was negative). - Oncology consultation appreciated - patient elects Hospice care. (5) Elevated troponin Comment: - Patient has no complaints of chest pain or dyspnea, but had elevation of troponin up to 0.64 and dynamic septal EKG changes, in the setting of multiple risk factors for CAD including tobacco abuse, family history, age, HTN. - Cardiology input appreciated - recommended pharmacological stress test for risk stratification, but pt declines it. - Will continue medical management with ASA, Metoprolol and statin. - Echo showed normal EF and normal wall motion. (6) Acute on chronic respiratory failure with hypoxemia Comment: - Suspect patient has chronic hypoxemia associated with her tobacco abuse and undiagnosed COPD. - CTA chest was negative for PE and showed atelectasis. - Incentive spirometry and supplemental O2. (7) DVT prophylaxis Comment: - Heparin drip. (8) DNR (do not resuscitate) Status and Disposition: Inpatient. Patient and family (son) updated at bedside. Plan to d/c home with Hospice care.
[2016-12-13] MEDS ORDERED: diPHENhydraMINE PO* 25 MG ONE (14:49)
[2016-12-13] MEDS ORDERED: Diazepam TAB(*) 5 MG ONE (14:49)
[2016-12-13] MEDS ORDERED: Heparin(*) 1000 UNIT/ML 10 ML VIAL CATH LAB IV ONE (15:19)
[2016-12-13] MEDS ORDERED: fentaNYL* 50 MCG/ML 2 ML VIAL (100 MCG VIAL) ONE (15:19)
[2016-12-13] MEDS ORDERED: Midazolam* 1 MG/ML 5 ML VIAL (5 MG) ONE (15:19)
[2016-12-13] MEDS ORDERED: Iodixanol* (CONTRAST) 320 MG/ML 100 ML SDV ONE (15:20)
[2016-12-13] MEDS ORDERED: Heparin 2 UNITS/ML IVPREMIX* 3,000 ML IV ONE (15:20)
[2016-12-13] MEDS ORDERED: Lidocaine 1% INJ* 10 MG/ML 30 ML SDV ONE (15:20)
[2016-12-13] MEDS ORDERED: nitroGLYCERIN DRIP* 0 ML ONE (15:21)
[2016-12-13] MEDS ORDERED: Iohexol 350 (CONTRAST) 200 ML MDV IV ONE (15:21)
[2016-12-13] MEDS ORDERED: NS 0.9% 1000 ML* 1,000 ML IV SCH (17:45)
[2016-12-14] MEDS: NS 0.9% 1000 ML* 1,000 ML IV SCH ×2 (05:06→18:18)
[2016-12-14 06:06] LABS: Hematocrit 28 % (35-47); Hemoglobin 9.1 g/dl (12.0-16.0); Mean Corpuscular HGB Conc 32 g/dl (31-36); Mean Corpuscular Hemoglobin 28 pg (27-31); Mean Corpuscular Volume 85 fL (80-97); Mean Platelet Volume 9 um3 (7.4-10.4); Red Cell Distribution Width 16 % (10.5-15); White Blood Count 28.7 10^3/ul (3.5-10.8)
[2016-12-14 06:12] LABS: Comments Flag Yes
[2016-12-14 06:13] LABS: Add Diff/Slide Review? Slide Review Added
[2016-12-14 06:19] LABS: Calcium 7.8 mg/dL (8.6-10.3); EGFR African American 200.1 (>60); EGFR Non-African American 155.6 (>60); Potassium 3.1 mmol/L (3.5-5.0)
[2016-12-14] MEDS: fentaNYL Patch Check Q Shift 1 NOTE SCH ×2 (07:05→19:13)
[2016-12-14] MEDS: Pantoprazole IV* 40 MG IV SCH (09:21)
[2016-12-14] MEDS: Ondansetron INJ* 2 MG/ML VIAL IV PRN (09:22)
[2016-12-14] MEDS: Metoprolol Tartrate TAB* 25 MG PO SCH ×2 (10:09→21:02)
[2016-12-14] MEDS: Cilostazol TAB* 100 MG PO SCH ×2 (10:10→21:01)
[2016-12-14] MEDS: Atorvastatin* 80 MG TAB PO SCH (10:11)
[2016-12-14] MEDS: amLODIPine TAB* 5 MG PO SCH (10:11)
[2016-12-14] MEDS: Clopidogrel TAB* 75 MG PO SCH (10:11)
[2016-12-14] MEDS: Aspirin EC Low Dose* 81 MG TAB.EC PO SCH (10:12)
[2016-12-14] MEDS: Multivitamins/Minerals TAB PO SCH (10:12)
[2016-12-14] MEDS: Sertraline* 100 MG TAB PO SCH (10:12)
--- NOTE | 2016-12-14 10:35 | PN ---
Progress Note - Progress Note SOAP: Subjective: [] Still pain today. Attempted angioplasty but according to patient she could not complete procedure. Some delusions. She wants to see her family and then sooner then later. Feels she cannot take care of herself at home. Son says he will stay with her but she is hesitant to burden him. Acetaminophen (Tylenol Tab*) 650 mg PO Q6H PRN PRN Reason: pain/fever Last Admin: 12/13/16 00:51 Dose: 650 mg Amlodipine Besylate (Norvasc Tab*) 5 mg PO DAILY [facility] Last Admin: 12/14/16 10:11 Dose: 5 mg Aspirin (Aspirin Ec Low Dose*) 81 mg PO DAILY [facility] Last Admin: 12/14/16 10:12 Dose: 81 mg Atorvastatin Calcium (Lipitor*) 80 mg PO DAILY [facility] Last Admin: 12/14/16 10:11 Dose: 80 mg Cilostazol (Pletal Tab*) 50 mg PO BID [facility] Last Admin: 12/14/16 10:10 Dose: 50 mg Clopidogrel Bisulfate (Plavix Tab*) 75 mg PO DAILY [facility] Last Admin: 12/14/16 10:11 Dose: 75 mg Fentanyl (Duragesic Patch 25 Mcg/Hr*) 25 mcg TRANSDERM Q72H [facility] Last Admin: 12/12/16 18:25 Dose: 25 mcg Sodium Chloride (Ns 0.9% 1000 Ml*) 1,000 mls @ 75 mls/hr IV .PER RATE [facility] Iohexol (Omnipaque 350 (Contrast)-) 125 ml IV ONCE [facility] Stop: 12/14/16 23:59 Last Admin: 12/12/16 15:20 Dose: 125 ml Metoprolol Tartrate (Lopressor Tab*) 12.5 mg PO Q12HR [facility] Last Admin: 12/14/16 10:09 Dose: 12.5 mg Morphine Sulfate (Morphine Inj (Syringe)*) 6 mg IV Q2H PRN PRN Reason: PAIN Last Admin: 12/12/16 16:03 Dose: 6 mg Multivitamins/Minerals (Theragran/Minerals Tab*) 1 tab PO DAILY [facility] Last Admin: 12/14/16 10:12 Dose: 1 tab Ondansetron HCl (Zofran Inj*) 4 mg IV Q6H PRN PRN Reason: NAUSEA Last Admin: 12/14/16 09:22 Dose: 4 mg Pantoprazole Sodium (Protonix Iv*) 40 mg IV DAILY [facility] Last Admin: 12/14/16 09:21 Dose: 40 mg Pharmacy Profile Note (Fentanyl Patch Check Q Shift) 1 note N/A 0700,1900 [facility] Last Admin: 12/14/16 07:05 Dose: 1 note Sertraline HCl (Zoloft*) 200 mg PO DAILY [facility] Last Admin: 12/14/16 10:12 Dose: 200 mg Objective: [] Vital Signs Temp Pulse Resp BP Pulse Ox 98.2 F 93 20 175/75 92 12/14/16 08:02 12/14/16 08:02 12/14/16 08:02 12/14/16 08:02 12/14/16 08:02 HEENT - Pale CTA RRR s1s2 Has BS and mild tenderness, liver palpable. Ext w/o edema. left foot still cool Assessment: [] 76 year old with advanced pancreatic cancer. Plan: []1. Discussed placement. Prognosis difficulty to tell but I suspect a few weeks , could be longer. Encouraged her to let he son help. Hospice residence is also reasonable for he if there is a bed. 2. Pain controlled ok today, increased narcotics will risk increased hallucinations. 3. Discussed with Dr. Alfaro and was able to increase some circulation though stent could not be placed. No additional procedures planned.
[2016-12-14] MEDS ORDERED: Ondansetron INJ* 2 MG/ML VIAL IV PRN (11:16)
[2016-12-14] MEDS ORDERED: PROCHLORPERAZINE INJ 5 MG/ML 2 ML VIAL IV PRN (12:23)
[2016-12-14] MEDS: Morphine INJ* 10 MG/ML 1 ML CARPUJECT IV PRN ×2 (12:57→20:57)
[2016-12-14] MEDS ORDERED: Magnesium Hydroxide LIQ* 30 ML UDC PO PRN (14:52)
[2016-12-14] MEDS ORDERED: fentaNYL PATCH 25 MCG/HR TRANSDERM SCH (15:00)
[2016-12-14] MEDS: Polyethylene Glycol 3350* 17 GM PACKET PO SCH ×2 (15:06→21:08)
[2016-12-14] MEDS: fentaNYL PATCH 50 MCG/HR TRANSDERM SCH (15:14)
--- NOTE | 2016-12-14 16:59 | PN ---
Subjective Date of Service: 12/14/16 Interval History: HOSPITALIST PROGRESS NOTE Patient seen and examined at bedside. She doesn't feel well today. C/o abdominal pain, right foot pain, cannot eat. Family History: Unchanged from Admission Social History: Unchanged from Admission Past Medical History: Unchanged from Admission Objective Active Medications: Acetaminophen (Tylenol Tab*) 650 mg PO Q6H PRN PRN Reason: pain/fever Last Admin: 12/13/16 00:51 Dose: 650 mg Amlodipine Besylate (Norvasc Tab*) 5 mg PO DAILY [facility] Last Admin: 12/14/16 10:11 Dose: 5 mg Aspirin (Aspirin Ec Low Dose*) 81 mg PO DAILY [facility] Last Admin: 12/14/16 10:12 Dose: 81 mg Atorvastatin Calcium (Lipitor*) 80 mg PO DAILY [facility] Last Admin: 12/14/16 10:11 Dose: 80 mg Cilostazol (Pletal Tab*) 50 mg PO BID [facility] Last Admin: 12/14/16 10:10 Dose: 50 mg Clopidogrel Bisulfate (Plavix Tab*) 75 mg PO DAILY [facility] Last Admin: 12/14/16 10:11 Dose: 75 mg Fentanyl (Duragesic Patch 50 Mcg/Hr*) 50 mcg TRANSDERM Q72H [facility] Last Admin: 12/14/16 15:14 Dose: 50 mcg Sodium Chloride (Ns 0.9% 1000 Ml*) 1,000 mls @ 75 mls/hr IV .PER RATE [facility] Iohexol (Omnipaque 350 (Contrast)-) 125 ml IV ONCE [facility] Stop: 12/14/16 23:59 Last Admin: 12/12/16 15:20 Dose: 125 ml Magnesium Hydroxide (Milk Of Magnesia Liq*) 30 ml PO BID PRN PRN Reason: CONSTIPATION Metoprolol Tartrate (Lopressor Tab*) 12.5 mg PO Q12HR [facility] Last Admin: 12/14/16 10:09 Dose: 12.5 mg Morphine Sulfate (Morphine Inj (Syringe)*) 6 mg IV Q2H PRN PRN Reason: PAIN Last Admin: 12/14/16 12:57 Dose: 6 mg Multivitamins/Minerals (Theragran/Minerals Tab*) 1 tab PO DAILY [facility] Last Admin: 12/14/16 10:12 Dose: 1 tab Ondansetron HCl (Zofran Inj*) 4 mg IV Q6H PRN PRN Reason: NAUSEA Pantoprazole Sodium (Protonix Iv*) 40 mg IV DAILY [facility] Last Admin: 12/14/16 09:21 Dose: 40 mg Pharmacy Profile Note (Fentanyl Patch Check Q Shift) 1 note N/A 0700,1900 [facility] Last Admin: 12/14/16 07:05 Dose: 1 note Polyethylene Glycol/Electrolytes (Miralax*) 17 gm PO 0800,2100 [facility] Last Admin: 12/14/16 15:06 Dose: Not Given Prochlorperazine Edisylate (Compazine Inj*) 5 mg IV Q6H PRN PRN Reason: NAUSEA/VOMITING Last Admin: 12/14/16 12:58 Dose: 5 mg Sertraline HCl (Zoloft*) 200 mg PO DAILY [facility] Last Admin: 12/14/16 10:12 Dose: 200 mg Vital Signs 12/14/16 12/14/16 12/14/16 12:57 13:57 15:12 Temperature 98.2 F Pulse Rate 87 Respiratory 18 16 18 Rate Blood Pressure 121/51 (mmHg) O2 Sat by Pulse 90 Oximetry Oxygen Devices in Use Now: Nasal Cannula Appearance: Elderly lady lying in bed in [facility], appears uncomfortable. Eyes: No Scleral Icterus Ears/Nose/Mouth/Throat: Mucous Membranes Moist Neck: Trachea Midline Respiratory: Symmetrical Chest Expansion and Respiratory Effort, Clear to Auscultation Cardiovascular: RRR - Normal S1 and S2 Abdominal: - - Soft, diffuse tenderness, NG, NR, BS+ Extremities: - - Left foot is cold and cyanotic, tender to touch Neurological: Alert and Oriented x 3, NL Muscle Strength and Tone Lines/Tubes/Other Access: Clean, Dry and Intact Peripheral IV Nutrition: Taking PO's Result Diagrams: 12/14/16 05:26 12/14/16 05:25 Assess/Plan/Problems-Billing Assessment: Mrs. Wise is a 76yo F with PMH of HLD, HTN, depression, tobacco abuse, recent diagnosis of metastatic pancreatic adenocarcinoma, who presents with c/o N/V and fatigue. - Patient Problems (1) Iliac artery embolism Comment: - Physical examination compatible with an acute ischemic left foot. - CTA aorta and run off showed left common and external iliac artery occlusion likely representing emboli. Other findings of chronic PVD also present. - Failed angioplasty - please see Dr. Sodums note for details. - Continue Aspirin, Plavix, Cilostazol. (2) Anemia of chronic disease Comment: - More anemia today. Suspect possible blood loss on top of her anemia of chronic disease. - s/p 2 PRBCs. (3) SIRS (systemic inflammatory response syndrome) Comment: - Patient met SIRS criteria with tachycardia and leukocytosis. - No clear source of infection, suspect it to be leukemoid reaction secondary to her metastatic CA. - Cultures showed no growth, will d/c Zosyn. (4) Metastatic adenocarcinoma to pancreas Comment: - Records from [place] reviewed - sent by PCP to [place] after US showed possible pancreatic mass. CT showed 8.7x7.7x6.7cm lobulated mass arising from the pancreatic body and tail with probable central necrosis. The mass is exophytic and is displacing the stomach superiorly. Liver showed a 7x5.3 cm right lobe mass and at least 8 more small hypodensities in both lobes. Liver mass was biopsied and pathology showed moderately to poorly differentiated adenocarcinoma (but CA19-9 was negative). - Oncology consultation appreciated - patient elects Hospice care. - Will increase Fentanyl patch. (5) Elevated troponin Comment: - Patient has no complaints of chest pain or dyspnea, but had elevation of troponin up to 0.64 and dynamic septal EKG changes, in the setting of multiple risk factors for CAD including tobacco abuse, family history, age, HTN. - Cardiology input appreciated - recommended pharmacological stress test for risk stratification, but pt declines it. - Will continue medical management with ASA, Metoprolol and statin. - Echo showed normal EF and normal wall motion. (6) Acute on chronic respiratory failure with hypoxemia Comment: - Suspect patient has chronic hypoxemia associated with her tobacco abuse and undiagnosed COPD. - CTA chest was negative for PE and showed atelectasis. - Incentive spirometry and supplemental O2. (7) DVT prophylaxis Comment: - Lovenox. (8) DNR (do not resuscitate) Status and Disposition: Inpatient. Patient and family (DIL) updated at bedside. Much weaker now and Hospice at home may not be feasible. May benefit of Hospice residence placement.
--- NOTE | 2016-12-14 20:17 | CONS ---
PALLIATIVE CARE CONSULTATION: DATE OF CONSULT: 12/14/16 PRIMARY CARE PHYSICIAN: Jessenia Terrell MD, at [facility]. REQUESTING PHYSICIAN FOR CONSULTATION: Mireya Castillo MD REASON FOR CONSULTATION: Evaluation for hospice. HISTORY OF PRESENT ILLNESS: This is a 76-year-old female with a past medical history of depression, hypertension, tobacco use and alcohol use who recently was diagnosed with metastatic pancreatic cancer. The patient states around [place], her health significantly declined with weight loss, nausea. She had 20-pound weight loss. She was normally very active, gardening in her home and has not been able to do much activity. She states she has not even been able to smoke due to the nausea or drink her red wine, which she enjoys. She was evaluated in the hospital at [place] beginning mid November and she had a biopsy done at that time and she was told she had pancreatic cancer. She was discharged to home, but has not been able to tolerate very much p.o., was fatigued and began nausea and vomiting and came to [facility] for further evaluation. Of note, she was set up to see Dr. Yo , the oncologist in [place]. The patient had a CAT scan done of her chest, abdomen, and pelvis that showed multiple hepatic masses consistent with metastatic disease, large mass arising from the pancreatic body measuring up to 9.6 x 5.7, which was heterogeneous. There is likely obstruction and invasion of the splenic artery resulting in hypoperfusion of the spleen. Splenic infarct is likely. The patient was consulted by Interventional Cardiology for critical limb ischemia of her left lower extremity. The patient was taken to the catheterization laboratory for intervention; however, the patient was not tolerating the procedure and the procedure was discontinued without any intervention. Oncology also was consulted during this hospitalization. Dr. Kidd agreed this was metastatic pancreatic cancer with multiple poor prognostic factors including leukemoid reaction to her malignancy, significant disease burden, and significant medical comorbidities including active thrombotic disease. At that time, he felt she was eligible and the patient is interested in hospice. The patient has a significant amount of abdominal pain; the 6 mg morphine has helped, but the pain quickly returns. She also has a significant amount of nausea and she also has a significant amount of left lower extremity pain and has difficulty ambulating. Otherwise, review of systems is negative. PAST MEDICAL HISTORY: 1. New diagnosis of metastatic pancreatic cancer. 2. Hyperlipidemia. 3. Depression. 4. Hypertension. HOSPITALIZED MEDICATIONS: 1. Tylenol 650 mg every 6 hours as needed. 2. Aspirin 81 mg daily. 3. Atorvastatin 80 mg daily. 4. Pletal 50 mg p.o. b.i.d. 5. Plavix 75 mg daily. 6. Magnesium oxide 30 mL b.i.d. as needed. 7. Metoprolol tartrate 12.5 mg p.o. b.i.d. 8. Morphine 6 mg every 2 hours as needed. 9. Multivitamin daily. 10. Normal saline 75 cc an hour. 11. Zofran 6 mg q.6 hours as needed. 12. Pantoprazole IV 40 mg daily. 13. MiraLAX 17 g b.i.d. 14. Compazine 5 mg IV q.6 hours as needed. 15. Zoloft 200 mg daily. 16. Amlodipine 5 mg daily. 17. Fentanyl patch 25 mcg. ALLERGIES: No known drug allergies. FAMILY HISTORY: Mother from breast cancer. Father from heart disease. SOCIAL HISTORY: Prior to admission, the patient was living at home alone, independent of her activities of daily living. She was smoking up to a pack a day since she was in her teens, although since she has not been able to tolerate any cigarettes and she was drinking wine 4 to 5 times per day, but stopped over as well. Her healthcare proxy is her son, Jony Page , phone number is [phone]. Her MOLST form is filled out with DNR. She has 2 children. Her one son passed a few years ago by committing suicide. She has 2 grandchildren, 2 great grandchildren. Her [id number] is at the bedside. REVIEW OF SYSTEMS: As mentioned in the HPI. PHYSICAL EXAM: Vitals: Temperature 98, pulse rate 97, respiratory rate 16, oxygen saturation 90% on 2 L, blood pressure 175/78. General: No acute distress, resting comfortably with her [id number] at the bedside. Neck: Supple. No lymphadenopathy. Pupils are equal and reactive. Anicteric. Head: Normocephalic. Oropharynx: Mucous membranes moist. Cardiac: Regular rate and rhythm. Soft systolic murmur heard throughout. Respiratory: Diminished breath sounds. No wheezing, rhonchi, or rales. Abdomen: Hypoactive bowel sounds. Soft. Abdominal fullness and pain over the mid abdomen and right upper quadrant region. Extremities: Her left lower extremity is cool and cyanotic with absent pulses. Her right lower extremity, +1 DP's, warm. No edema bilaterally. Neurologic: Alert and oriented x3. No focal neurologic deficits. DIAGNOSTIC STUDIES/LAB DATA: White count 28.7, hemoglobin 9.1, hematocrit 28, platelets 184. Sodium 135, potassium 3.1, chloride 101, bicarb 24, BUN 6, creatinine 0.4. Troponin peaked at 0.64, trending down. ASSESSMENT: This is a 76-year-old female with a recent diagnosis of metastatic pancreatic carcinoma, now being referred for hospice. The patient is a candidate for hospice with her principal primary terminal diagnosis of pancreatic metastatic cancer with poor prognostic factors as mentioned by Dr. Kidd. The patient is interested in going to the [facility] in [place] as she lives in [place] and her family is there as well. I did reach out to them and they are going to look at her information to see if she fits the criteria. If not, the patient may be a candidate for the hospice residence who was also notified as well. The patient does not think that she will be able to manage at home despite her children offering to take care of her. She is worried about pain control and 24-hour care. Recommendation: increasing her fentanyl patch accordingly and starting an aggressive bowel regimen. Per Dr. Alfaro to continue the pletal for ischemic pain control. We will follow up [facility]. Thank you for this consultation. TIME SPENT: Greater than 90 minutes were spent doing this consultation, more than half that time was spent in direct patient contact. CC: Jessenia Terrell MD, at [facility] * [id number]/[facility] #: [id number] ISABELLA
[2016-12-14] MEDS ORDERED: Enoxaparin(*) 40 MG/0.4 ML SYR SUBCUT SCH (21:00)
[2016-12-14] MEDS: Potassium Chlor TAB* 20 MEQ TAB.ER PO SCH (21:02)
[2016-12-15] MEDS: fentaNYL Patch Check Q Shift 1 NOTE SCH ×2 (06:32→20:08)
[2016-12-15] MEDS: NS 0.9% 1000 ML* 1,000 ML IV SCH (07:48)
[2016-12-15] MEDS: amLODIPine TAB* 5 MG PO SCH (08:44)
[2016-12-15] MEDS: Polyethylene Glycol 3350* 17 GM PACKET PO SCH ×2 (08:44→19:52)
[2016-12-15] MEDS: Multivitamins/Minerals TAB PO SCH (08:45)
[2016-12-15] MEDS: Aspirin EC Low Dose* 81 MG TAB.EC PO SCH (08:45)
[2016-12-15] MEDS: Clopidogrel TAB* 75 MG PO SCH (08:45)
[2016-12-15] MEDS: Atorvastatin* 80 MG TAB PO SCH (08:45)
[2016-12-15] MEDS: Potassium Chlor TAB* 20 MEQ TAB.ER PO SCH (08:46)
[2016-12-15] MEDS: Sertraline* 100 MG TAB PO SCH (08:46)
[2016-12-15] MEDS: Pantoprazole IV* 40 MG IV SCH (08:46)
[2016-12-15] MEDS: Metoprolol Tartrate TAB* 25 MG PO SCH (08:47)
[2016-12-15] MEDS: Cilostazol TAB* 100 MG PO SCH ×2 (08:49→19:52)
[2016-12-15] MEDS ORDERED: Morphine INJ* 2 MG/ML 1 ML CARPUJECT IV PRN (11:36)
[2016-12-15] MEDS ORDERED: HYDROmorphone INJ* 2 MG/ML CARPUJECT SYRINGE IV SLOW PU PRN (11:38)
--- NOTE | 2016-12-15 14:43 | PN ---
Progress Note - Progress Note Note: Palliative Care Consult Note - Patient more confused today and having difficulty caring a conversation. Denies abdominal pain. Her left ischemic foot pain persists but tolerable. No nausea. Did have a BM yesterday AM. Unable to get in touch with her son Jony who is her HCP. She has been accepted to the [facility] in [place]. Of note, [facility] does not do IV narcotics. If patient cannot get her pain under control with PO and topical agents, she may need to rethink her disposition. Will discuss with primary team.
--- NOTE | 2016-12-15 17:07 | PN ---
Subjective Date of Service: 12/15/16 Interval History: pt c/o pain in left foot. Agrees with comfort care orders. Accepted to hospice facility for Monday12/19/16 Family History: Unchanged from Admission Social History: Unchanged from Admission Past Medical History: Unchanged from Admission Objective Active Medications: Acetaminophen (Tylenol Tab*) 650 mg PO Q6H PRN PRN Reason: pain/fever Last Admin: 12/13/16 00:51 Dose: 650 mg Aspirin (Aspirin Ec Low Dose*) 81 mg PO DAILY [facility] Last Admin: 12/15/16 08:45 Dose: 81 mg Cilostazol (Pletal Tab*) 50 mg PO BID [facility] Last Admin: 12/15/16 08:49 Dose: 50 mg Fentanyl (Duragesic Patch 50 Mcg/Hr*) 50 mcg TRANSDERM Q72H [facility] Last Admin: 12/14/16 15:14 Dose: 50 mcg Hydromorphone HCl (Dilaudid Iv*) 2 mg IV SLOW PU Q2H PRN PRN Reason: PAIN Last Admin: 12/15/16 13:13 Dose: 2 mg Magnesium Hydroxide (Milk Of MagnRibbit Liq*) 30 ml PO BID PRN PRN Reason: CONSTIPATION Morphine Sulfate (Morphine Oral Concentrate*) 20 mg PO Q2H PRN PRN Reason: PAIN Multivitamins/Minerals (Theragran/Minerals Tab*) 1 tab PO DAILY [facility] Last Admin: 12/15/16 08:45 Dose: 1 tab Ondansetron HCl (Zofran Inj*) 4 mg IV Q6H PRN PRN Reason: NAUSEA Pharmacy Profile Note (Fentanyl Patch Check Q Shift) 1 note N/A 0700,1900 [facility] Last Admin: 12/15/16 06:32 Dose: 1 note Polyethylene Glycol/Electrolytes (Miralax*) 17 gm PO 0800,2100 [facility] Last Admin: 12/15/16 08:44 Dose: Not Given Prochlorperazine Edisylate (Compazine Inj*) 5 mg IV Q6H PRN PRN Reason: NAUSEA/VOMITING Last Admin: 12/14/16 12:58 Dose: 5 mg Sertraline HCl (Zoloft*) 200 mg PO DAILY [facility] Last Admin: 12/15/16 08:46 Dose: 200 mg Vital Signs 12/14/16 12/14/16 12/14/16 19:42 20:00 20:57 Temperature 97.9 F Pulse Rate 85 Respiratory 18 18 18 Rate Blood Pressure 129/50 (mmHg) O2 Sat by Pulse 93 Oximetry 12/14/16 12/14/16 12/15/16 21:56 23:54 04:09 Temperature 98.5 F 98.7 F Pulse Rate 88 99 Respiratory 14 20 20 Rate Blood Pressure 112/51 131/55 (mmHg) O2 Sat by Pulse 86 80 Oximetry 12/15/16 12/15/16 12/15/16 04:18 07:46 08:00 Temperature 97.9 F Pulse Rate 91 90 Respiratory 16 16 Rate Blood Pressure 135/52 (mmHg) O2 Sat by Pulse 86 87 Oximetry 12/15/16 12/15/16 13:13 14:13 Temperature Pulse Rate Respiratory 16 16 Rate Blood Pressure (mmHg) O2 Sat by Pulse Oximetry Oxygen Devices in Use Now: Nasal Cannula - at 10 L Appearance: 76 yo F in [place], aAOx3 Eyes: No Scleral Icterus, PERRLA Ears/Nose/Mouth/Throat: NL Teeth, Lips, Gums, Mucous Membranes Moist Neck: NL Appearance and Movements; NL JVP Respiratory: Symmetrical Chest Expansion and Respiratory Effort, Clear to Auscultation Cardiovascular: NL Sounds; No Murmurs; No JVD, RRR Abdominal: NL Sounds; No Tenderness; No Distention, No Hepatosplenomegaly Lymphatic: No Cervical Adenopathy Extremities: No Edema, - - left foot cyanotic, tender and cold to touch-no palpable pulses. Peripheral cynanosis noted on fingertips Skin: No Nodules or Sclerosis Neurological: Alert and Oriented x 3, NL Muscle Strength and Tone Result Diagrams: 12/14/16 05:26 12/14/16 05:25 Additional Lab and Data: Lab Results 12/10/16 Range/Units 13:48 WBC 26.1 H (3.5-10.8) 10^3/ul RBC 3.73 L (4.0-5.4) 10^6/ul Hgb 10.0 L (12.0-16.0) g/dl Hct 32 L (35-47) % MCV 85 (80-97) fL MCH 27 (27-31) pg MCHC 32 (31-36) g/dl RDW 16 H (10.5-15) % Plt Count 235 (150-450) 10^3/ul MPV 9 (7.4-10.4) um3 Neut % (Auto) 85.3 H (38-83) % Lymph % (Auto) 4.6 L (25-47) % [place] % (Auto) 8.9 (1-9) % Eos % (Auto) 1.0 (0-6) % Baso % (Auto) 0.2 (0-2) % Absolute Neuts (auto) 22.2 H (1.5-7.7) 10^3/ul Absolute Lymphs (auto) 1.2 (1.0-4.8) 10^3/ul Absolute Monos (auto) 2.3 H (0-0.8) 10^3/ul Absolute Eos (auto) 0.2 (0-0.6) 10^3/ul Absolute Basos (auto) 0.1 (0-0.2) 10^3/ul Absolute Nucleated RBC 0.02 10^3/ul Nucleated RBC % 0.1 Microbiology and Other Data: Microbiology 12/10/16 17:26 Aerobic Blood Culture - Preliminary Blood Venous No Growth Day 2 Anaerobic Blood Culture - Preliminary No Growth Day 2 Blood Culture - Final 12/10/16 17:54 Aerobic Blood Culture - Preliminary Blood Venous No Growth Day 2 Anaerobic Blood Culture - Preliminary No Growth Day 2 Blood Culture - Final Assess/Plan/Problems-Billing Assessment: Mrs. Wise is a 76yo F with PMH of HLD, HTN, depression, tobacco abuse, recent diagnosis of metastatic pancreatic adenocarcinoma, who presents with c/o N/V and fatigue. - Patient Problems (1) Acute on chronic respiratory failure with hypoxemia Comment: Suspect patient has chronic hypoxemia associated with her tobacco abuse and undiagnosed COPD. CTA chest was negative for PE and showed atelectasis. supplemental O2. comfort care (2) Iliac artery embolism Comment: Physical examination compatible with an acute ischemic left foot. CTA aorta and run off showed left common and external iliac artery occlusion likely representing emboli. Other findings of chronic PVD also present. Failed angioplasty - please see Dr. Alfaro note for details. Continue Aspirin, Cilostazol. comfort care (3) Metastatic adenocarcinoma to pancreas Current Visit: Yes Comment: CT showed 8.7x7.7x6.7cm lobulated mass arising from the pancreatic body and tail with probable central necrosis. The mass is exophytic and is displacing the stomach superiorly. Liver showed a 7x5.3 cm right lobe mass and at least 8 more small hypodensities in both lobes. Liver mass was biopsied and pathology showed moderately to poorly differentiated adenocarcinoma (but CA19-9 was negative). Oncology consultation appreciated - patient elected Hospice care. (4) DVT prophylaxis Comment: none, comfort care Status and Disposition: Inpatient.Awaiting bed at hospice residence on 12/19/16
[2016-12-15] MEDS: HYDROmorphone INJ* 2 MG/ML CARPUJECT SYRINGE IV SLOW PU PRN (19:55)
[2016-12-16] MEDS: Morphine ORAL CONCENTRATE* 5 MG/0.25 ML ORAL.SYRIN PO PRN ×8 (00:40→23:46)
--- NOTE | 2016-12-16 02:57 | CATH ---
PERIPHERAL ANGIOGRAM AND INTERVENTION REPORT: DATE OF PROCEDURE: 12/13/16 - ROOM #408 PROCEDURES: Left common femoral artery access with ultrasound guidance. Attempted revascularization, left common iliac artery, unsuccessful as the patient demanded that the procedure be terminated. HISTORY: A 76-year-old woman with metastatic pancreatic cancer, sudden onset of left leg rest pain with an ischemic left foot, undergoing angiography and possible revascularization for pain relief as part of palliative therapy in a patient with terminal cancer. PROCEDURE ACCESS: Left common femoral artery with ultrasound guidance, sheath 6 - Bulgarian. After sheath placement, an 0.035 angled Navicross catheter 4-Bulgarian was introduced, a 0.035 ZIPwire was used to probe the distal cap which was unfavorable with a concave appearance. The ZIPwire would track subintimally but did not enter the proximal true lumen. The occlusion was also probed with a 14 wire, likewise not able to enter the true lumen. Before we could make preparations to approach the occlusion antegrade, the patient became very anxious, restless, belligerent, demanded that we stop the procedure, which was terminated. The left common femoral sheath was pulled subsequently once ACT decreased. HEMODYNAMICS: Initial BP 170/81, final 176/81. ANGIOGRAPHY: Retrograde injection through the sheath and left common femoral artery demonstrates occlusion of the left external/common iliac artery junction with a convex distal cap. The common femoral is relatively small in caliber. Injection through the microcatheter after the guidewire was advanced proximally demonstrates a retrograde dissection with subintimal location, without any perforation. Injection right above the occlusion point within the dissection plane demonstrates the proximal cap also to have an unfavorable convex appearance. Final image in the external iliac shows again the occlusion without any extravasation. CONCLUSION: Obstruction of the left common and external iliac arteries, unsuccessful revascularization as the procedure was terminated at the patient's request. [id number]/[facility] #: [id number] [facility]
--- NOTE | 2016-12-16 09:08 | PN ---
Progress Note - Progress Note SOAP: Subjective: []Just woke up and so initially thought she was in [place], however once started discussion states, "Oh now I remember." Denies pain, but moving is difficult. Denies nausea, appreciates ice water. Set-up for d/c to [facility] with hospice on 12/19. Medications: Acetaminophen (Tylenol Tab*) 650 mg PO Q6H PRN PRN Reason: pain/fever Last Admin: 12/13/16 00:51 Dose: 650 mg Aspirin (Aspirin Ec Low Dose*) 81 mg PO DAILY [facility] Last Admin: 12/15/16 08:45 Dose: 81 mg Cilostazol (Pletal Tab*) 50 mg PO BID [facility] Last Admin: 12/15/16 19:52 Dose: 50 mg Fentanyl (Duragesic Patch 50 Mcg/Hr*) 50 mcg TRANSDERM Q72H [facility] Last Admin: 12/14/16 15:14 Dose: 50 mcg Hydromorphone HCl (Dilaudid Iv*) 1 mg IV SLOW PU Q2H PRN PRN Reason: PAIN Last Admin: 12/15/16 19:55 Dose: 1 mg Magnesium Hydroxide (Milk Of MagnTriplePulse Liq*) 30 ml PO BID PRN PRN Reason: CONSTIPATION Morphine Sulfate (Morphine Oral Concentrate*) 20 mg PO Q2H PRN PRN Reason: PAIN Last Admin: 12/16/16 04:42 Dose: 20 mg Multivitamins/Minerals (Theragran/Minerals Tab*) 1 tab PO DAILY [facility] Last Admin: 12/15/16 08:45 Dose: 1 tab Ondansetron HCl (Zofran Inj*) 4 mg IV Q6H PRN PRN Reason: NAUSEA Pharmacy Profile Note (Fentanyl Patch Check Q Shift) 1 note N/A 0700,1900 [facility] Last Admin: 12/15/16 20:08 Dose: 1 note Polyethylene Glycol/Electrolytes (Miralax*) 17 gm PO 0800,2100 [facility] Last Admin: 12/15/16 19:52 Dose: 17 gm Prochlorperazine Edisylate (Compazine Inj*) 5 mg IV Q6H PRN PRN Reason: NAUSEA/VOMITING Last Admin: 12/14/16 12:58 Dose: 5 mg Sertraline HCl (Zoloft*) 200 mg PO DAILY [facility] Last Admin: 12/15/16 08:46 Dose: 200 mg Objective: [] Vital Signs Temp Pulse Resp BP Pulse Ox 98.1 F 101 20 143/47 87 12/16/16 00:05 12/16/16 00:35 12/16/16 04:42 12/16/16 00:05 12/16/16 00:35 A&Ox3, though easily confused initially HRR LS clear bilat., shallow respirations LLE with minimal movement, otherwise able to reposition self in bed Assessment: []76 yo female with metastatic pancreatic cancer c/b emobli and respiratory failure. Her symptoms area controlled at this time. Plan: []No change: d/c as above with hospice, caution with tapering Fentanyl too quickly d/t mild confusion. Oncology services available as needed.
[2016-12-16] MEDS: Sertraline* 100 MG TAB PO SCH (09:24)
[2016-12-16] MEDS: Cilostazol TAB* 100 MG PO SCH ×2 (09:24→20:28)
[2016-12-16] MEDS: Aspirin EC Low Dose* 81 MG TAB.EC PO SCH (09:24)
[2016-12-16] MEDS: Multivitamins/Minerals TAB PO SCH (09:25)
[2016-12-16] MEDS: Polyethylene Glycol 3350* 17 GM PACKET PO SCH ×2 (09:25→20:28)
[2016-12-16] MEDS: fentaNYL Patch Check Q Shift 1 NOTE SCH ×2 (09:40→17:36)
--- NOTE | 2016-12-16 12:26 | PN ---
Subjective Date of Service: 12/16/16 Interval History: pt was asleep when I entered that room. confused upon awakening. Had been on PO Roxanol for foot pain. stated that pain is controlled. Family History: Unchanged from Admission Social History: Unchanged from Admission Past Medical History: Unchanged from Admission Objective Active Medications: Acetaminophen (Tylenol Tab*) 650 mg PO Q6H PRN PRN Reason: pain/fever Last Admin: 12/13/16 00:51 Dose: 650 mg Aspirin (Aspirin Ec Low Dose*) 81 mg PO DAILY [facility] Last Admin: 12/16/16 09:24 Dose: 81 mg Cilostazol (Pletal Tab*) 50 mg PO BID [facility] Last Admin: 12/16/16 09:24 Dose: 50 mg Fentanyl (Duragesic Patch 50 Mcg/Hr*) 50 mcg TRANSDERM Q72H [facility] Last Admin: 12/14/16 15:14 Dose: 50 mcg Hydromorphone HCl (Dilaudid Iv*) 1 mg IV SLOW PU Q2H PRN PRN Reason: PAIN Last Admin: 12/15/16 19:55 Dose: 1 mg Magnesium Hydroxide (Milk Of Magnesia Liq*) 30 ml PO BID PRN PRN Reason: CONSTIPATION Morphine Sulfate (Morphine Oral Concentrate*) 20 mg PO Q2H PRN PRN Reason: PAIN Last Admin: 12/16/16 09:22 Dose: 20 mg Multivitamins/Minerals (Theragran/Minerals Tab*) 1 tab PO DAILY [facility] Last Admin: 12/16/16 09:25 Dose: 1 tab Ondansetron HCl (Zofran Inj*) 4 mg IV Q6H PRN PRN Reason: NAUSEA Pharmacy Profile Note (Fentanyl Patch Check Q Shift) 1 note N/A 0700,1900 [facility] Last Admin: 12/16/16 09:40 Dose: 1 note Polyethylene Glycol/Electrolytes (Miralax*) 17 gm PO 0800,2100 [facility] Last Admin: 12/16/16 09:25 Dose: 17 gm Prochlorperazine Edisylate (Compazine Inj*) 5 mg IV Q6H PRN PRN Reason: NAUSEA/VOMITING Last Admin: 12/14/16 12:58 Dose: 5 mg Sertraline HCl (Zoloft*) 200 mg PO DAILY [facility] Last Admin: 12/16/16 09:24 Dose: 200 mg Vital Signs 12/15/16 12/15/16 12/15/16 13:13 14:13 18:06 Temperature 98.0 F Pulse Rate 89 Respiratory 16 16 18 Rate Blood Pressure 120/49 (mmHg) O2 Sat by Pulse 83 Oximetry 12/15/16 12/15/16 12/15/16 18:46 19:55 20:00 Temperature 98.0 F Pulse Rate 89 Respiratory 18 20 20 Rate Blood Pressure 120/49 (mmHg) O2 Sat by Pulse 83 Oximetry 12/15/16 12/15/16 12/16/16 20:55 21:59 00:05 Temperature 98.2 F 98.1 F Pulse Rate 87 103 Respiratory 16 18 15 Rate Blood Pressure 137/52 143/47 (mmHg) O2 Sat by Pulse 84 71 Oximetry 12/16/16 12/16/16 12/16/16 00:11 00:35 00:40 Temperature Pulse Rate 104 101 Respiratory 20 Rate Blood Pressure (mmHg) O2 Sat by Pulse 75 87 Oximetry 12/16/16 12/16/16 12/16/16 02:40 04:42 06:42 Temperature Pulse Rate Respiratory 16 20 16 Rate Blood Pressure (mmHg) O2 Sat by Pulse Oximetry 12/16/16 12/16/16 09:22 11:22 Temperature Pulse Rate Respiratory 16 16 Rate Blood Pressure (mmHg) O2 Sat by Pulse Oximetry Oxygen Devices in Use Now: Nasal Cannula - at 10 L Appearance: 76 yo F in nAD, disoriented, pleasant and cooperative Eyes: No Scleral Icterus, PERRLA Ears/Nose/Mouth/Throat: NL Teeth, Lips, Gums, Mucous Membranes Moist Neck: NL Appearance and Movements; NL JVP, Trachea Midline Respiratory: Symmetrical Chest Expansion and Respiratory Effort, - - bibasliar crackles Cardiovascular: NL Sounds; No Murmurs; No JVD, RRR Abdominal: NL Sounds; No Tenderness; No Distention Lymphatic: No Cervical Adenopathy Extremities: No Clubbing, Cyanosis Skin: No Nodules or Sclerosis, - - left stove tender, cyanotic, with no palpable pulses Neurological: - - generalized weakness, disoriented Result Diagrams: 12/14/16 05:26 12/14/16 05:25 Additional Lab and Data: Lab Results 12/10/16 Range/Units 13:48 WBC 26.1 H (3.5-10.8) 10^3/ul RBC 3.73 L (4.0-5.4) 10^6/ul Hgb 10.0 L (12.0-16.0) g/dl Hct 32 L (35-47) % MCV 85 (80-97) fL MCH 27 (27-31) pg MCHC 32 (31-36) g/dl RDW 16 H (10.5-15) % Plt Count 235 (150-450) 10^3/ul MPV 9 (7.4-10.4) um3 Neut % (Auto) 85.3 H (38-83) % Lymph % (Auto) 4.6 L (25-47) % [place] % (Auto) 8.9 (1-9) % Eos % (Auto) 1.0 (0-6) % Baso % (Auto) 0.2 (0-2) % Absolute Neuts (auto) 22.2 H (1.5-7.7) 10^3/ul Absolute Lymphs (auto) 1.2 (1.0-4.8) 10^3/ul Absolute Monos (auto) 2.3 H (0-0.8) 10^3/ul Absolute Eos (auto) 0.2 (0-0.6) 10^3/ul Absolute Basos (auto) 0.1 (0-0.2) 10^3/ul Absolute Nucleated RBC 0.02 10^3/ul Nucleated RBC % 0.1 Microbiology and Other Data: Microbiology 12/10/16 17:26 Aerobic Blood Culture - Preliminary Blood Venous No Growth Day 2 Anaerobic Blood Culture - Preliminary No Growth Day 2 Blood Culture - Final 12/10/16 17:54 Aerobic Blood Culture - Preliminary Blood Venous No Growth Day 2 Anaerobic Blood Culture - Preliminary No Growth Day 2 Blood Culture - Final Assess/Plan/Problems-Billing Assessment: Mrs. Wise is a 76yo F with PMH of HLD, HTN, depression, tobacco abuse, recent diagnosis of metastatic pancreatic adenocarcinoma, who presents with c/o N/V and fatigue. - Patient Problems (1) Acute on chronic respiratory failure with hypoxemia Comment: Suspect patient has chronic hypoxemia associated with her tobacco abuse and undiagnosed COPD. CTA chest was negative for PE and showed atelectasis. supplemental O2. comfort care (2) Iliac artery embolism Comment: Physical examination compatible with an acute ischemic left foot. CTA aorta and run off showed left common and external iliac artery occlusion likely representing emboli. Other findings of chronic PVD also present. Failed angioplasty - please see Dr. Alfaro note for details. Continue Aspirin, Cilostazol. comfort care (3) Metastatic adenocarcinoma to pancreas Current Visit: Yes Comment: CT showed 8.7x7.7x6.7cm lobulated mass arising from the pancreatic body and tail with probable central necrosis. The mass is exophytic and is displacing the stomach superiorly. Liver showed a 7x5.3 cm right lobe mass and at least 8 more small hypodensities in both lobes. Liver mass was biopsied and pathology showed moderately to poorly differentiated adenocarcinoma (but CA19-9 was negative). Oncology consultation appreciated - patient elected Hospice care. (4) DVT prophylaxis Comment: none, comfort care Status and Disposition: Inpatient.Awaiting bed at hospice residence on 12/19/16
[2016-12-16] MEDS: HYDROmorphone INJ* 2 MG/ML CARPUJECT SYRINGE IV SLOW PU PRN (17:33)
[2016-12-16 23:54] VITALS: BP 124/45
[2016-12-17] MEDS: Atropine 1% (ORAL/SL)* 15 ML BTL SL PRN ×3 (01:29→05:41)
[2016-12-17] MEDS: Morphine ORAL CONCENTRATE* 5 MG/0.25 ML ORAL.SYRIN PO PRN ×15 (01:32→23:08)
[2016-12-17] MEDS: fentaNYL Patch Check Q Shift 1 NOTE SCH ×2 (06:48→18:47)
[2016-12-17] MEDS: Polyethylene Glycol 3350* 17 GM PACKET PO SCH ×2 (06:50→21:07)
[2016-12-17] MEDS: Cilostazol TAB* 100 MG PO SCH ×2 (07:16→21:07)
[2016-12-17] MEDS: Multivitamins/Minerals TAB PO SCH (07:16)
[2016-12-17] MEDS: Aspirin EC Low Dose* 81 MG TAB.EC PO SCH (07:16)
[2016-12-17] MEDS: Sertraline* 100 MG TAB PO SCH (07:16)
--- NOTE | 2016-12-17 13:09 | PN ---
Subjective Date of Service: 12/17/16 Interval History: Pt became unresponsive last night. RR 8. Family History: Unchanged from Admission Social History: Unchanged from Admission Past Medical History: Unchanged from Admission Objective Active Medications: Acetaminophen (Tylenol Tab*) 650 mg PO Q6H PRN PRN Reason: pain/fever Last Admin: 12/13/16 00:51 Dose: 650 mg Aspirin (Aspirin Ec Low Dose*) 81 mg PO DAILY [facility] Last Admin: 12/17/16 07:16 Dose: Not Given Atropine Sulfate (Atropine 1% (Oral/Sl)*) 2 drop SL Q2H PRN PRN Reason: DISCOMFORT Last Admin: 12/17/16 05:41 Dose: 2 drop Cilostazol (Pletal Tab*) 50 mg PO BID [facility] Last Admin: 12/17/16 07:16 Dose: Not Given Fentanyl (Duragesic Patch 50 Mcg/Hr*) 50 mcg TRANSDERM Q72H [facility] Last Admin: 12/14/16 15:14 Dose: 50 mcg Hydromorphone HCl (Dilaudid Iv*) 1 mg IV SLOW PU Q2H PRN PRN Reason: PAIN Last Admin: 12/16/16 17:33 Dose: 1 mg Magnesium Hydroxide (Milk Of Magnesia Liq*) 30 ml PO BID PRN PRN Reason: CONSTIPATION Morphine Sulfate (Morphine Oral Concentrate*) 20 mg PO Q1H PRN PRN Reason: PAIN Last Admin: 12/17/16 11:28 Dose: 20 mg Multivitamins/Minerals (Theragran/Minerals Tab*) 1 tab PO DAILY [facility] Last Admin: 12/17/16 07:16 Dose: Not Given Ondansetron HCl (Zofran Inj*) 4 mg IV Q6H PRN PRN Reason: NAUSEA Pharmacy Profile Note (Fentanyl Patch Check Q Shift) 1 note N/A 0700,1900 [facility] Last Admin: 12/17/16 06:48 Dose: 1 note Polyethylene Glycol/Electrolytes (Miralax*) 17 gm PO 0800,2100 [facility] Last Admin: 12/17/16 06:50 Dose: Not Given Prochlorperazine Edisylate (Compazine Inj*) 5 mg IV Q6H PRN PRN Reason: NAUSEA/VOMITING Last Admin: 12/14/16 12:58 Dose: 5 mg Sertraline HCl (Zoloft*) 200 mg PO DAILY [facility] Last Admin: 12/17/16 07:16 Dose: Not Given Vital Signs 12/16/16 12/16/16 12/16/16 14:10 16:05 16:10 Pulse Rate Respiratory 18 16 18 Rate O2 Sat by Pulse Oximetry 12/16/16 12/16/16 12/16/16 17:33 18:05 18:33 Pulse Rate Respiratory 18 17 17 Rate O2 Sat by Pulse Oximetry 12/16/16 12/16/16 12/16/16 19:12 20:00 21:12 Pulse Rate Respiratory 19 18 10 Rate O2 Sat by Pulse Oximetry 12/16/16 12/16/16 12/16/16 21:23 23:23 23:46 Pulse Rate Respiratory 10 11 9 Rate O2 Sat by Pulse Oximetry 12/16/16 12/17/16 12/17/16 23:53 01:32 01:46 Pulse Rate 95 Respiratory 19 19 Rate O2 Sat by Pulse 89 Oximetry 12/17/16 12/17/16 12/17/16 02:38 03:32 03:37 Pulse Rate Respiratory 23 25 25 Rate O2 Sat by Pulse Oximetry 12/17/16 12/17/16 12/17/16 04:38 05:37 05:39 Pulse Rate Respiratory 20 11 11 Rate O2 Sat by Pulse Oximetry 12/17/16 12/17/16 12/17/16 06:53 07:30 07:39 Pulse Rate Respiratory 12 8 8 Rate O2 Sat by Pulse Oximetry 12/17/16 12/17/16 12/17/16 09:28 09:30 11:28 Pulse Rate Respiratory 8 8 8 Rate O2 Sat by Pulse Oximetry Oxygen Devices in Use Now: Nasal Cannula - at 10 L Appearance: 76 yo F, unresponsive, slow breathing Eyes: No Scleral Icterus, PERRLA Ears/Nose/Mouth/Throat: NL Teeth, Lips, Gums, - - dry mucosa Respiratory: Symmetrical Chest Expansion and Respiratory Effort, - - rales b/l Cardiovascular: NL Sounds; No Murmurs; No JVD, RRR Abdominal: NL Sounds; No Tenderness; No Distention, No Hepatosplenomegaly Lymphatic: No Cervical Adenopathy Extremities: - - left foot cold and cyanotic Result Diagrams: 12/14/16 05:26 12/14/16 05:25 Additional Lab and Data: Lab Results 12/10/16 Range/Units 13:48 WBC 26.1 H (3.5-10.8) 10^3/ul RBC 3.73 L (4.0-5.4) 10^6/ul Hgb 10.0 L (12.0-16.0) g/dl Hct 32 L (35-47) % MCV 85 (80-97) fL MCH 27 (27-31) pg MCHC 32 (31-36) g/dl RDW 16 H (10.5-15) % Plt Count 235 (150-450) 10^3/ul MPV 9 (7.4-10.4) um3 Neut % (Auto) 85.3 H (38-83) % Lymph % (Auto) 4.6 L (25-47) % [place] % (Auto) 8.9 (1-9) % Eos % (Auto) 1.0 (0-6) % Baso % (Auto) 0.2 (0-2) % Absolute Neuts (auto) 22.2 H (1.5-7.7) 10^3/ul Absolute Lymphs (auto) 1.2 (1.0-4.8) 10^3/ul Absolute Monos (auto) 2.3 H (0-0.8) 10^3/ul Absolute Eos (auto) 0.2 (0-0.6) 10^3/ul Absolute Basos (auto) 0.1 (0-0.2) 10^3/ul Absolute Nucleated RBC 0.02 10^3/ul Nucleated RBC % 0.1 Microbiology and Other Data: Microbiology 12/10/16 17:26 Aerobic Blood Culture - Preliminary Blood Venous No Growth Day 2 Anaerobic Blood Culture - Preliminary No Growth Day 2 Blood Culture - Final 12/10/16 17:54 Aerobic Blood Culture - Preliminary Blood Venous No Growth Day 2 Anaerobic Blood Culture - Preliminary No Growth Day 2 Blood Culture - Final Assess/Plan/Problems-Billing Assessment: Mrs. Wise is a 76yo F with PMH of HLD, HTN, depression, tobacco abuse, recent diagnosis of metastatic pancreatic adenocarcinoma, who presents with c/o N/V and fatigue. - Patient Problems (1) Acute on chronic respiratory failure with hypoxemia Comment: Suspect patient has chronic hypoxemia associated with her tobacco abuse and undiagnosed COPD. CTA chest was negative for PE and showed atelectasis. supplemental O2. comfort care (2) Iliac artery embolism Comment: Physical examination compatible with an acute ischemic left foot. CTA aorta and run off showed left common and external iliac artery occlusion likely representing emboli. Other findings of chronic PVD also present. Failed angioplasty - please see Dr. Alfaro note for details. comfort care (3) Metastatic adenocarcinoma to pancreas Current Visit: Yes Comment: CT showed 8.7x7.7x6.7cm lobulated mass arising from the pancreatic body and tail with probable central necrosis. The mass is exophytic and is displacing the stomach superiorly. Liver showed a 7x5.3 cm right lobe mass and at least 8 more small hypodensities in both lobes. Liver mass was biopsied and pathology showed moderately to poorly differentiated adenocarcinoma (but CA19-9 was negative). Oncology consultation appreciated - patient elected Hospice care. (4) DVT prophylaxis Comment: none, comfort care Status and Disposition: Inpatient.actively dying
[2016-12-17] MEDS: fentaNYL PATCH 50 MCG/HR TRANSDERM SCH (15:20)
[2016-12-18] MEDS: Morphine ORAL CONCENTRATE* 5 MG/0.25 ML ORAL.SYRIN PO PRN ×2 (00:18→01:18)
--- NOTE | 2016-12-18 11:15 | DS ---
DISCHARGE/ SUMMARY: DATE OF ADMISSION: 12/10/16 DATE OF : 12/18/16 PRIMARY CARE PROVIDER: Dr. Jessenia Terrell at [facility], phone #[phone]. CAUSES OF : 1. [id number] respiratory failure with hypoxemia. 2. Metastatic adenocarcinoma of the pancreas. 3. Left iliac artery embolism. SECONDARY DIAGNOSES: 1. History of recently diagnosed metastatic pancreatic cancer. 2. Hyperlipidemia. 3. Depression. 4. Hypertension. CONSULTATIONS: During the hospital stay included Dr. Kidd from Hematology/ Oncology; Dr. Alfaro, Interventional Cardiology. PROCEDURES: During the hospital stay included attempted left external and common artery obstruction, angioplasty that was unsuccessful. HOSPITALIZATION COURSE: Mrs. Wise was a very nice 76-year-old with a history of recently diagnosed primary metastatic pancreatic cancer, who was doing rather well after the diagnosis of pancreatic cancer at the beginning of November 2016 until she was admitted to the hospital on 12/10/16, complaining of nausea and vomiting. At this point, the patient also had elevated troponins. It was thought more this was demand ischemia. Cardiology was consulted and recommended a stress test, which the patient refused. The patient's oxygen needs continued to increase throughout her hospital stay and by the end of the hospital stay, she was on 10 L of oxygen nasal cannula. She also had systemic inflammatory response syndrome, most likely due to a leukemoid reaction secondary to her metastatic cancer. She was noted to have ischemic left foot and diagnosis of iliac artery embolus on the left. She was placed on aspirin, Plavix, and Pletal, as well as heparin drip. Dr. Alfaro attempted revascularization, but was unsuccessful. Dr. Kidd saw the patient also from Oncology as a consult. The patient was offered chemotherapy that would extend her life by a few months, but she was not interested in that. The patient was interested in hospice. Dr. Butler saw the patient in consultation from hospice care. The patient was deemed a good candidate for hospice. She was awaiting placement in hospice care facility on 12/20/16. Unfortunately, she dramatically got worse over the course of the last days of her life. She required more and more fentanyl due to her continuation of her left foot pain and her limb ischemia. She continued to require more and more oxygen. She was pronounced at 1:58 a.m. on 12/18/16. Family was present by the bedside. Autopsy was not requested. Please note, this is a short summary of the patient's hospital stay. Please refer to further medical record for details. TIME SPENT: Approximately 30 minutes was spent on the patient's discharge visit. CC: Dr. Jessenia Terrell; Dr. Butler; Dr. Alfaro; Dr. Mccrary; Dr. Kidd * [id number]/[facility] #: [id number] [facility]
== END 2016-12-18 01:58 | disposition expired | DRG 435 ==
LOC: ED 12:57 → MEDTELE 16:17 → MED 12-15 18:10
PROVIDERS: ADMIT Internal Medicine; ATTEND Internal Medicine
PROC: 30233N1 Transfusion of Nonautologous Red Blood Cells into Peripheral Vein, Percutaneous Approach (ICD-10-PCS; principal; 2016-12-15)
PROC: B41GZZZ Fluoroscopy of Left Lower Extremity Arteries (ICD-10-PCS; 2016-12-15)
DX: C25.1 Malignant neoplasm of body of pancreas (principal); J96.21 Acute and chronic respiratory failure with hypoxia; I74.5 Embolism and thrombosis of iliac artery; C78.7 Secondary malignant neoplasm of liver and intrahepatic bile duct; R65.10 Systemic inflammatory response syndrome (SIRS) of non-infectious origin without acute organ dysfunction; I24.8 Other forms of acute ischemic heart disease; I70.222 Atherosclerosis of native arteries of extremities with rest pain, left leg; I99.8 Other disorder of circulatory system; I10 Essential (primary) hypertension; F32.9 Major depressive disorder, single episode, unspecified; F17.200 Nicotine dependence, unspecified, uncomplicated; E78.5 Hyperlipidemia, unspecified; Z80.3 Family history of malignant neoplasm of breast; Z82.49 Family history of ischemic heart disease and other diseases of the circulatory system; Z81.8 Family history of other mental and behavioral disorders; Z51.5 Encounter for palliative care; D63.8 Anemia in other chronic diseases classified elsewhere; Z66 Do not resuscitate; Z53.20 Procedure and treatment not carried out because of patient's decision for unspecified reasons
CPT/HCPCS: 36415; 71010; 71275; 74177; 75635; 80048; 80053; 81003; 81015; 82607; 82728; 82746; 83540; 83550; 83605; 83690; 84484; 84520; 85025; 85730; 86078; 86850; 86900; 86901; 86922; 87040; 93005; 93306; 94760; 96374; 99223; 99232; 99282; 99406; A9270-GY; C1725; C1887; J0780; J1170; J1644; J1650; J2250; J2270; J2405; J2543; J2765; J3010; J3480; P9040; Q9967